=== PATIENT | female | born 1980 | race Two or more races ===

== ENCOUNTER 2016-03-30 22:55 | Observation (INO) | payer MEDICARE, OTHER ==
--- NOTE | 2016-03-30 23:09 | PDOC ---
History of Present Illness - General History Source: Patient <Arcadio Mo - Last Filed: 03/31/16 04:55> - General History Source: Patient Exam Limitations: No Limitations - History of Present Illness Initial Comments: 03/30/16 23:55 The patient is a 35 year old female with significant past medical history of GERD, seizures, cervical and lumbar radiculopathy, right shoulder impingement, reflex dystrophy, mediastinal mass excision, and depression who presents to the ED with witnessed seizure prior to arrival. Patient reports she was playing cards at about 10:30pm when she got up, fell, and hit the back of her head. Bleeding from the mouth was not noted. Patient denies bladder and bowel incontinence. Upon EMS arrival, they administered 5 mg of versed. Patient was able to get up and get onto the stretcher. Subsequently, patient seized again and EMS administered 2mg of versed, followed by another 2mg of versed. At time of evaluation, patient has complaints of pain to the right shoulder and right elbow. She reports chest pain and rib cage pain upon deep inspiration. She also has complaints of a headache and photophobia. Patient states she has been taking topiramate for 1 year with no improvement. Her last seizure was in December 2015. As per mother, at bedside, patient has numbness in her legs. The patient denies fever, chills, cough, and SOB. The patient denies abdominal pain, nausea, vomiting, and diarrhea. The patient denies dysuria, hematuria, urgency, and frequency. Allergies: aspirin, ibuprofen Social History: Current smoker (8 cigarettes per day) Past Surgical History: None reported PCP: Dr. Linton <Cinyd Swan - Last Filed: 03/31/16 05:07> - General Chief Complaint: Seizure Stated Complaint: SEIZURE Time Seen by Provider: 03/30/16 23:09 Past History - Past Medical History Anemia: No Asthma: No Cancer: No Cardiac Disorders: Yes (HEART MURMUR) CVA: No COPD: (LUNG NODULE) CHF: No Dementia: No Diabetes: No GI Disorders: No Disorders: No HTN: No Hypercholesterolemia: No Liver Disease: No Seizures: No Thyroid Disease: No - Surgical History Abdominal Surgery: No Appendectomy: No Cardiac Surgery: No Cholecystectomy: No Lung Surgery: Yes (MASS REMOVED) Neurologic Surgery: No Orthopedic Surgery: Yes (RIGHT SHOULDER SURGERY) - Family Disease History Family Disease History: Diabetes: Grandparents - Reproductive History (#): 6 Para: 3 Cervical CA: No Dysfunctional Uterine Bleeding: No Ectopic : No Endometrial CA: No Polycystic Ovaries: No Therapeutic (s) & number: No Tubal Ligation: No - Immunization History Td Vaccination: Yes Immunization Up to Date: Yes - Psycho/Social/Smoking Cessation Hx Anxiety: No Suicidal Ideation: No Smoking Status: Yes Smoking History: Current every day smoker Years of Tobacco Use: 0 Have you smoked in the past 12 months: Yes Number of Cigarettes Smoked Daily: 8 If you are a former smoker, when did you quit?: MAR 2013 Cigars Per Day: 0 'Breaking Loose' booklet given: 06/06/13 Hx Alcohol Use: No Drug/Substance Use Hx: No Substance Use Type: None Hx Substance Use Treatment: No <Arcadio Mo - Last Filed: 03/31/16 04:55> <Cindy Swan - Last Filed: 03/31/16 05:07> - Past Medical History Allergies/Adverse Reactions: Allergies Allergy/AdvReac Type Severity Reaction Status Date / Time aspirin Allergy Mild Hives Verified 03/30/16 23:23 ibuprofen Allergy Mild Hives Verified 03/30/16 23:23 Home Medications: Ambulatory Orders Acetaminophen/Caffeine/Butalb [Fioricet -] 1 tab PO Q6H PRN 03/30/16 Oxycodone HCl/Acetaminophen [Oxycodone-Acetaminophen 10-325] 1 each PO Q4HWA PRN 03/30/16 Phentermine HCl 30 mg PO DAILY 03/30/16 Topiramate [Topamax] 25 mg PO BID 03/30/16 Review of Systems - Review of Systems Able to Perform ROS?: Yes Comments:: 03/30/16 23:55 CONSTITUTIONAL: Absent: fever, chills, diaphoresis, generalized weakness, malaise, loss of appetite HEENT: Absent: rhinorrhea, nasal congestion, throat pain, throat swelling, difficulty swallowing, mouth swelling, ear pain, eye pain, visual Changes CARDIOVASCULAR: +chest pain Absent: syncope, palpitations, irregular heart rate, lightheadedness , peripheral edema RESPIRATORY: Absent: cough, shortness of breath, dyspnea with exertion, orthopnea, wheezing, stridor, hemoptysis GASTROINTESTINAL: Absent: abdominal pain, abdominal distension, nausea, vomiting, diarrhea, constipation, melena, hematochezia GENITOURINARY: Absent: dysuria, frequency, urgency, hesitancy, hematuria, flank pain, genital pain MUSCULOSKELETAL: +right shoulder pain, right elbow pain, rib cage pain Absent: joint swelling SKIN: Absent: rash, itching, pallor NEUROLOGIC: +seizure, headache, numbness in legs, photophobia Absent: focal weakness, dizziness, unsteady gait, mental status changes, bladder or bowel incontinence <Cindy Swan - Last Filed: 03/31/16 05:07> *Physical Exam - Vital Signs Last Vital Signs Temp Pulse Resp BP Pulse Ox 98.3 F 85 19 119/57 99 03/30/16 23:06 03/30/16 23:06 03/30/16 23:06 03/30/16 23:06 03/30/16 23:06 - Physical Exam Comments: 03/30/16 23:55 GENERAL: Well developed, well nourished. Awake and alert. No acute distress. HEENT: Normocephalic. No racoon or cavazos sign. PERRLA, EOMI, but not tracking well. Conjunctival injection bilaterally. Sclera are non-icteric. Moist mucous membranes. Erythema and swelling of left cheek. Oropharynx is clear. No bleeding from the mouth. No tongue laceration. No hemotympanum. NECK: Supple. Full ROM. No JVD. Carotid pulses 2+ and symmetric, without bruits. No thyromegaly. No lymphadenopathy. CARDIOVASCULAR: Regular rate and rhythm. No murmurs, rubs, or gallops. Distal pulses are 2+ and symmetric. PULMONARY: No evidence of respiratory distress. Lungs clear to auscultation bilaterally. No wheezing, rales or rhonchi. ABDOMINAL: Soft. Right abdominal tenderness. Non-distended. No rebound or guarding. No organomegaly. Normoactive bowel sounds. MUSCULOSKELETAL Normal range of motion at all joints. No bony deformities. Right shoulder tenderness, right elbow tenderness, right side of rib cage tenderness. No CVA tenderness. EXTREMITIES: No cyanosis. No clubbing. No edema. No calf tenderness. SKIN: Warm and dry. Normal capillary refill. No rashes. No jaundice. NEUROLOGICAL: Alert, awake, appropriate. Answering questions appropriately. Cranial nerves 2- 12 intact. Moving all extremities. Possible absent seizure during neuro exam. PSYCHIATRIC: Cooperative. Good eye contact. Appropriate mood and affect. <Cindy Swan - Last Filed: 03/31/16 05:07> ED Treatment Course - LABORATORY CBC & Chemistry Diagram: 03/30/16 23:52 03/30/16 23:52 <Arcadio Mo - Last Filed: 03/31/16 04:55> - LABORATORY CBC & Chemistry Diagram: 03/30/16 23:52 03/30/16 23:52 - RADIOLOGY Radiograph Interpretation: 03/31/16 01:45 EXAM: CT of the brain without contrast. Reveiwed by Imaging test preparation tutor: Comparison made to the provided prior evaluation dated 12/31/2015 There is no intra/extra-axial hemorrhage, vasogenic edema/focal mass effect, CT evidence of acute infarction, interval ventriculomegaly or gross change. Impression: no hemorrhage. EXAM: CT of the cervical spine without contrast. Reviewed by Imaging test preparation tutor: There is no fracture or facet subluxation; incidental developmental incomplete C1 dorsal arch. No prevertebral hematoma or gross acute epidural abnormality. Mild C4/5and C5/6 anterolisthesis; alignment is otherwise anatomic for the visualized volume, from skull base to T1/2. Presumed positional straightening of the normal lordosis. Impression: no fracture; as above. 03/31/16 05:07 EXAM: Chest radiograph Reviewed by Imaging test preparation tutor: IMPRESSION: No acute abnormality. EXAM: RIBS RIGHT SIDE Reviewed by Imaging test preparation tutor: IMPRESSION: no acute abnormality. <Cindy Swan - Last Filed: 03/31/16 05:07> Medical Decision Making - Medical Decision Making 03/31/16 04:42 Dr. Mo: The scribe's documentation has been prepared under my direction and personally reviewed by me in its entirery. I confirm that the note above accurately reflects all work, treatment, procedures, and medical decision making performed by me. <Arcadio Mo - Last Filed: 03/31/16 04:55> *DC/Admit/Observation/Transfer - Discharge Dispostion Admit: Yes <Arcadio Mo - Last Filed: 03/31/16 04:55> - Attestations Scribe Attestion: 03/30/16 23:56 Documentation prepared by Cindy Sawn, acting as medical technologist generalist for Arcadio Mo MD <Cindy Swan - Last Filed: 03/31/16 05:07> Diagnosis at time of Disposition: Seizure - Discharge Dispostion Condition at time of disposition: Guarded - Referrals Referrals: STAFF,NOT ON [Non Staff, Medical] -
[2016-03-31 00:04] LABS: BASOPHIL 0.4 % (0-2.0); EOSINOPHIL 0.6 % (0-4.5); MCH 27.5 pg (25.7-33.7); MCHC 31.9 g/dl (32.0-36.0); MEAN CELL VOLUME 86.2 fl (80-96); MEAN PLT VOLUME 8.6 fl (7.5-11.1); PLATELET COUNT 240 K/MM3 (134-434); RDW 14.4 % (11.6-15.6)
[2016-03-31 00:12] LABS: URINE APPEARANCE CLEAR; URINE BILIRUBIN NEGATIVE (NEGATIVE); URINE BLOOD TRACE-INTA (NEGATIVE); URINE COLOR LT. YELLOW; URINE GLUCOSE (UA) NEGATIVE (NEGATIVE); URINE KETONE 1+ (NEGATIVE); URINE LEUK ESTERASE NEGATIVE (NEGATIVE); URINE NITRITE NEGATIVE (NEGATIVE); URINE PROTEIN NEGATIVE (NEGATIVE); URINE UROBILINOGEN 0.2 E.U/dl E.U./dl (0.2-1.0)
[2016-03-31 00:30] LABS: ALBUMIN 3.7 g/dl (3.4-5.0); ALK PHOS 61 U/L (45-117); ANION GAP 10 (8-16); BILIRUBIN,TOTAL 0.6 mg/dL (0.2-1.0); CALCIUM 8.6 mg/dL (8.5-10.1); CO2 26 mmol/L (21-32); CREATININE 0.8 mg/dL (0.55-1.02); GLUCOSE,RANDOM 83 mg/dL (74-106); SGOT/AST 15 U/L (15-37); SGPT/ALT 13 U/L (12-78); TOT PROT 6.5 g/dl (6.4-8.2)
[2016-03-31] MEDS ORDERED: morphine CARPU-JECT 2 MG/1 ML DISP.SYRIN IVPUSH ONE (01:47)
[2016-03-31] MEDS ORDERED: ONDANSETRON 4 MG/2 ML VIAL IVPUSH STA (01:47)
[2016-03-31] MEDS ORDERED: morphine CARPU-JECT 4 MG/1 ML DISP.SYRIN ONE (02:04)
[2016-03-31] MEDS ORDERED: morphine CARPU-JECT 2 MG/1 ML DISP.SYRIN ONE (02:04)
[2016-03-31] MEDS ORDERED: ONDANSETRON 4 MG/2 ML VIAL ONE (02:05)
[2016-03-31] MEDS ORDERED: SODIUM CHLORIDE 1,000 ML IV STA (03:12)
[2016-03-31] MEDS ORDERED: HYDROmorphone HCL CARPU-JECT 1 MG/1 ML DISP.SYRIN IVPUSH ONE (03:16)
[2016-03-31] MEDS ORDERED: HYDROmorphone HCL CARPU-JECT 1 MG/1 ML DISP.SYRIN ONE (03:17)
[2016-03-31] MEDS ORDERED: METOCLOPRAMIDE HCL INJECTION 10 MG/2 ML VIAL IVPUSH ONE (04:34)
[2016-03-31] MEDS ORDERED: METOCLOPRAMIDE HCL INJECTION 10 MG/2 ML VIAL ONE (04:41)
[2016-03-31] MEDS ORDERED: ACETAMINOPHEN/CAFFEINE/BUTALBITAL 1 TAB PO PRN (05:30)
--- NOTE | 2016-03-31 05:55 | HP ---
CHIEF COMPLAINT: Seizure Activity PCP: Dr. Linton HISTORY OF PRESENT ILLNESS: This is a 35 year old woman with a past medical history of Seizure (on Topimax) , Heart Murmur, GERD, Cervical Lumbar Radiculopathy, R shoulder Impingement, Reflex dystrophy (RSD), Depression. Who was BIBA to the emergency department for seizure activity. Per ED records: Patient was playing cards at home with her kids 22:30 last night, she got up, fell and hit the back of her head, had a seizure without bladder or bowel incontinence. On EMS arrival patient had another seizure Versed 2mg was given x2. Patient admits to not taking her Topamax regularly because it makes her "feel funny". Patient also reports taking Phentermine for weight loss and was told by her PCP it can cause Seizures. Patient reports having a seizure last December, declined admission was to f/u with Neurologist, did not get to make an appointment. Patient reported chest pain, rib cage pain increased on deep inspiration, headache and photophobia when she arrived to the ED. Patient reports the chest pain resolved. Patient denies fever, chills, SOB, AP, N/V/D, constipation, dysuria. Patient denies sick contacts or recent travel. ER course was notable for: (1) CT Brain- no ICH, mass or lesion (2) Rib series- no acute abnormality (3) C- Spine Xray- no fracture or facet subluxation Recent Travel: None PAST MEDICAL HISTORY: See HPI PAST SURGICAL HISTORY: See HPI Social History: Smoking: Daily < 1/2 PPD Alcohol: None Drugs: None Family History: Mother: COPD, Obesity Allergies aspirin Allergy (Mild, Verified 03/30/16 23:23) Hives ibuprofen Allergy (Mild, Verified 03/30/16 23:23) Hives HOME MEDICATIONS: Medication Instructions Recorded Acetaminophen/Caffeine/Butalb 1 tab PO Q6H PRN 03/30/16 [Fioricet -] Oxycodone HCl/Acetaminophen 1 each PO Q4HWA PRN 03/30/16 [Oxycodone-Acetaminophen 10-325] Phentermine HCl 30 mg PO DAILY 03/30/16 Topiramate [Topamax] 25 mg PO BID 03/30/16 REVIEW OF SYSTEMS CONSTITUTIONAL: Absent: fever, chills, diaphoresis, generalized weakness, malaise, loss of appetite, weight change HEENT: Absent: rhinorrhea, nasal congestion, throat pain, throat swelling, difficulty swallowing, mouth swelling, ear pain, eye pain, visual changes CARDIOVASCULAR: chest pain, Absent: syncope, palpitations, irregular heart rate, lightheadedness, peripheral edema RESPIRATORY: Absent: cough, shortness of breath, dyspnea with exertion, orthopnea, wheezing, stridor, hemoptysis GASTROINTESTINAL: Absent: abdominal pain, abdominal distension, nausea, vomiting, diarrhea, constipation, melena, hematochezia GENITOURINARY: Absent: dysuria, frequency, urgency, hesitancy, hematuria, flank pain, genital pain MUSCULOSKELETAL: right rib pain Absent: myalgia, arthralgia, joint swelling, back pain, neck pain SKIN: Absent: rash, itching, pallor HEMATOLOGIC/IMMUNOLOGIC: Absent: easy bleeding, easy bruising, lymphadenopathy, frequent infections ENDOCRINE: Absent: unexplained weight gain, unexplained weight loss, heat intolerance, cold intolerance NEUROLOGIC: seizure, photophobia Absent: headache, focal weakness or paresthesias, dizziness, unsteady gait, mental status changes, bladder or bowel incontinence PSYCHIATRIC: Absent: anxiety, depression, suicidal or homicidal ideation, hallucinations. PHYSICAL EXAMINATION Vital Signs - 24 hr 03/30/16 23:06 Temperature 98.3 F Pulse Rate 85 Respiratory 19 Rate Blood Pressure 119/57 O2 Sat by Pulse 99 Oximetry (%) GENERAL: Awake, alert, and fully oriented, in no acute distress. HEAD: Normal with no signs of trauma. EYES: Pupils equal, round and reactive to light, extraocular movements intact, sclera anicteric, conjunctiva clear. No lid lag. EARS, NOSE, THROAT: Ears normal, nares patent, oropharynx clear without exudates. Moist mucous membranes. NECK: Normal range of motion, supple without lymphadenopathy, JVD, or masses. LUNGS: Breath sounds equal, clear to auscultation bilaterally. No wheezes, and no crackles. No accessory muscle use. HEART: Regular rate and rhythm, normal S1 and S2 without murmur, rub or gallop, chest pain reproducible on palpation ABDOMEN: Soft, nontender, not distended, normoactive bowel sounds, no guarding, no rebound, no masses. No hepatomegaly or splenomegaly. MUSCULOSKELETAL: Normal range of motion at all joints. No bony deformities or + tenderness right ribs, right knee no bruising. No CVA tenderness. UPPER EXTREMITIES: 2+ pulses, warm, well-perfused. No cyanosis. No clubbing. Cap refill <2 seconds. No peripheral edema. LOWER EXTREMITIES: 2+ pulses, warm, well-perfused. No calf tenderness. No peripheral edema. NEUROLOGICAL: Cranial nerves II-XII intact. Normal speech. Gait not observed. PSYCHIATRIC: Cooperative. Good eye contact. Appropriate mood and affect. SKIN: Warm, dry, normal turgor, no rashes. small eccyhmotic bruise to posterior R arm noted. Laboratory Results - last 24 hr 03/30/16 03/30/16 03/30/16 23:52 23:52 23:57 WBC 11.0 H D RBC 4.67 Hgb 12.9 Hct 40.3 MCV 86.2 MCHC 31.9 L RDW 14.4 Plt Count 240 MPV 8.6 Neutrophils % 68.0 Lymphocytes % 24.9 D Monocytes % 6.1 Eosinophils % 0.6 Basophils % 0.4 Sodium 143 Potassium 3.8 Chloride 107 Carbon Dioxide 26 Anion Gap 10 BUN 10 Creatinine 0.8 Creat Clearance w eGFR > 60 Random Glucose 83 D Calcium 8.6 Total Bilirubin 0.6 D AST 15 D ALT 13 Alkaline Phosphatase 61 Total Protein 6.5 Albumin 3.7 Serum , Qual Urine Color Lt. yellow Urine Appearance Clear Urine pH 6.0 Ur Specific [place] 1.025 Urine Protein Negative Urine Glucose (UA) Negative Urine Ketones 1+ H Urine Blood Trace-inta Urine Nitrite Negative Urine Bilirubin Negative Urine Urobilinogen 0.2 e.u/dl Ur Leukocyte Esterase Negative Urine HCG, Qual Negative 03/30/16 23:57 WBC RBC Hgb Hct MCV MCHC RDW Plt Count MPV Neutrophils % Lymphocytes % Monocytes % Eosinophils % Basophils % Sodium Potassium Chloride Carbon Dioxide Anion Gap BUN Creatinine Creat Clearance w eGFR Random Glucose Calcium Total Bilirubin AST ALT Alkaline Phosphatase Total Protein Albumin Serum , Qual Negative Urine Color Urine Appearance Urine pH Ur Specific [place] Urine Protein Urine Glucose (UA) Urine Ketones Urine Blood Urine Nitrite Urine Bilirubin Urine Urobilinogen Ur Leukocyte Esterase Urine HCG, Qual RADIOLOGY Radiograph Interpretation: 03/31/16 01:45 EXAM: CT of the brain without contrast. Reveiwed by Imaging honey blender: Comparison made to the provided prior evaluation dated 12/31/2015 There is no intra/extra-axial hemorrhage, vasogenic edema/focal mass effect, CT evidence of acute infarction, interval ventriculomegaly or gross change. Impression: no hemorrhage. EXAM: CT of the cervical spine without contrast. Reviewed by Imaging honey blender: There is no fracture or facet subluxation; incidental developmental incomplete C1 dorsal arch. No prevertebral hematoma or gross acute epidural abnormality. Mild C4/5and C5/6 anterolisthesis; alignment is otherwise anatomic for the visualized volume, from skull base to T1/2. Presumed positional straightening of the normal lordosis. Impression: no fracture; as above. 03/31/16 05:07 EXAM: Chest radiograph Reviewed by Imaging honey blender: IMPRESSION: No acute abnormality. EXAM: RIBS RIGHT SIDE Reviewed by Imaging honey blender: IMPRESSION: no acute abnormality. ASSESSMENT/PLAN: This is a 35 year old woman with a PMHx of: Seizure Disorder (on Topamax), GERD , Cervical/Lumbar Radiculopathy, R- shoulder Impingement, Reflex Sympathetic Dystrophy (RSD), Depression. Who presents to the ED Seizure Activity. Placed on Observation for Seizures, for further evaluation of her emergent condition. Plan: 1. Seizures - Likely secondary to non-adherence vs Weight Loss Supplement - Appreciate Neurology Consult - CT- no ICH, mass or lesion - Hold Phentermine - Continue Topamax - Seizure Precautions - HOB elevated - Monitor vitals - NPO - Continue IVF - Monitor CBC, BMP 2. Chest Pain - Likely muscular, reproducible on palpation - Order EKG-pending - Will do CE for baseline, then trend 3. Musc: Rib Pain/R shoulder Impingement - Likely secondary to fall - Rib Series- neg acute fx - Ice to area - Tylenol prn - Incentive Spirometer 4. GERD - Continue PPI 5. Cervical/Lumbar Radiculopathy/RSD - Continue home med 6. Leukocytosis - Likely secondary to stress vs inflammation - Monitor CBC 7. Depression - Patient denies suicidal or homicidal ideation - Not on meds presently - f/u with psych in outpatient 8. F/E/N - NS@100ml/hr - Replete lytes prn - NPO 9. DVT/PPI Prophylaxis - SCDs - PPI - Consider AC if LOS > 48 hrs Code Status: Patient is a Full Code Problem List - Problem (1) Seizure Code(s): R56.9 - UNSPECIFIED CONVULSIONS (2) Headache Code(s): R51 - HEADACHE Qualifiers: Headache type: unspecified Headache chronicity pattern: acute headache Intractability: not intractable Qualified Code(s): R51 - Headache (3) Chest pain Code(s): R07.9 - CHEST PAIN, UNSPECIFIED (4) Rib pain on right side Code(s): R07.81 - PLEURODYNIA (5) GERD (gastroesophageal reflux disease) Code(s): K21.9 - GASTRO-ESOPHAGEAL REFLUX DISEASE WITHOUT ESOPHAGITIS (6) Depression Code(s): F32.9 - MAJOR DEPRESSIVE DISORDER, SINGLE EPISODE, UNSPECIFIED (7) Cervical radiculopathy Code(s): M54.12 - RADICULOPATHY, CERVICAL REGION (8) Lumbar radiculopathy Code(s): M54.16 - RADICULOPATHY, LUMBAR REGION (9) DVT prophylaxis Code(s): CWS5327 - Visit type - Emergency Visit Emergency Visit: Yes Care time: The patient presented to the Emergency Department on the above date and was hospitalized for further evaluation of their emergent condition. - New Patient This patient is new to me today: Yes Date on this admission: 03/31/16 - Critical Care Critical Care patient: No
[2016-03-31] MEDS ORDERED: SODIUM CHLORIDE 1,000 ML IV SCH (06:45)
[2016-03-31 08:11] LABS: TROPONIN I < 0.02 ng/ml (0.00-0.05)
[2016-03-31 08:16] VITALS: TEMP 98.2
--- NOTE | 2016-03-31 09:18 | HOSP ---
Physical Examination Vital Signs: Vital Signs Temperature 98.2 F 03/31/16 08:15 Pulse Rate 72 03/31/16 08:15 Respiratory Rate 18 03/31/16 08:15 Blood Pressure 109/59 03/31/16 08:15 O2 Sat by Pulse Oximetry (%) 98 03/31/16 08:15 Hospitalist Encounter Assessment: Observation day #1 for this 35 year old female with a history of seizure disorder (non-adherent to Topamax because of side effects), GERD, chronic back pain, reflex dystrophy, and depression placed in observation this morning following a seizure episode at home with head trauma. Workup to date includes: -CTH: negative for acute intracranial process -CK (281) and WBC (11) both slightly elevated, likely secondary to seizure activity -Electrolytes unremarkable The patient has seen Dr. Rosas previously (although she missed her most recent appointment) and consultation with him is pending.
[2016-03-31] MEDS ORDERED: TOPIRAMATE 25 MG TABLET (FP) PO SCH (10:00)
[2016-03-31] MEDS ORDERED: DIVALPROEX SODIUM 250 MG TABLET E.C. (FP) PO SCH (10:30)
[2016-03-31] MEDS ORDERED: ACETAMINOPHEN/CAFFEINE/BUTALBITAL 1 TAB ONE (11:15)
[2016-03-31] MEDS ORDERED: TOPIRAMATE 25 MG TABLET (FP) ONE (11:16)
[2016-03-31] MEDS ORDERED: DIVALPROEX SODIUM 125 MG TABLET E.C. (FP) ONE (11:16)
--- NOTE | 2016-03-31 11:16 | CONSULT ---
Consult - text type - Consultation Consultation Note: Neurology History of Present Illness The patient is a 35 year old female with significant past medical history of GERD, seizures, cervical and lumbar radiculopathy, right shoulder impingement, reflex dystrophy, mediastinal mass excision, and depression who presents to the ED with witnessed seizure prior to arrival. Patient reports she was playing cards at about 10:30pm last night when she got up, fell, and hit the back of her head. Patient denies bladder and bowel incontinence. The patient is known to me fromt he office and often times is very emotional. She has not been seen in some time but has been on topamax. I discussed with her adding Depakote 250mg twice a day for both mood stabilization and seizure prevention. She is at her baseline in the ER and her complaints are more of pain to the right shoulder and right elbow. She reports chest pain and rib cage pain upon deep inspiration. She also has complaints of a headache and photophobia. Patient states she has been taking Her last seizure was in December 2015. Ct head completed and without acute changes, no bleed. CT C spine and Xrays as decribed below. The patient denies fever, chills, cough, and SOB. The patient denies abdominal pain, nausea, vomiting, and diarrhea. The patient denies dysuria, hematuria, urgency, and frequency. Allergies: aspirin, ibuprofen Social History: Current smoker (8 cigarettes per day) Past Surgical History: None reported PCP: Dr. Linton - General Chief Complaint: Seizure Stated Complaint: SEIZURE Time Seen by Provider: 03/30/16 23:09 Past History - Past Medical History Anemia: No Asthma: No Cancer: No Cardiac Disorders: Yes (HEART MURMUR) CVA: No COPD: (LUNG NODULE) CHF: No Dementia: No Diabetes: No GI Disorders: No Disorders: No HTN: No Hypercholesterolemia: No Liver Disease: No Seizures: No Thyroid Disease: No - Surgical History Abdominal Surgery: No Appendectomy: No Cardiac Surgery: No Cholecystectomy: No Lung Surgery: Yes (MASS REMOVED) Neurologic Surgery: No Orthopedic Surgery: Yes (RIGHT SHOULDER SURGERY) - Family Disease History Family Disease History: Diabetes: Grandparents - Reproductive History (#): 6 Para: 3 Cervical CA: No Dysfunctional Uterine Bleeding: No Ectopic : No Endometrial CA: No Polycystic Ovaries: No Therapeutic (s) & number: No Tubal Ligation: No - Immunization History Td Vaccination: Yes Immunization Up to Date: Yes - Psycho/Social/Smoking Cessation Hx Anxiety: No Suicidal Ideation: No Smoking Status: Yes Smoking History: Current every day smoker Years of Tobacco Use: 0 Have you smoked in the past 12 months: Yes Number of Cigarettes Smoked Daily: 8 If you are a former smoker, when did you quit?: MAR 2013 Cigars Per Day: 0 'Breaking Loose' booklet given: 06/06/13 Hx Alcohol Use: No Drug/Substance Use Hx: No Substance Use Type: None Hx Substance Use Treatment: No - Past Medical History Allergies/Adverse Reactions: Allergies Allergy/AdvReac Type Severity Reaction Status Date / Time aspirin Allergy Mild Hives Verified 03/30/16 23:23 ibuprofen Allergy Mild Hives Verified 03/30/16 23:23 Home Medications: Ambulatory Orders Acetaminophen/Caffeine/Butalb [Fioricet -] 1 tab PO Q6H PRN 03/30/16 Oxycodone HCl/Acetaminophen [Oxycodone-Acetaminophen 10-325] 1 each PO Q4HWA PRN 03/30/16 Phentermine HCl 30 mg PO DAILY 03/30/16 Topiramate [Topamax] 25 mg PO BID 03/30/16 Review of Systems CONSTITUTIONAL: Absent: fever, chills, diaphoresis, generalized weakness, malaise, loss of appetite HEENT: Absent: rhinorrhea, nasal congestion, throat pain, throat swelling, difficulty swallowing, mouth swelling, ear pain, eye pain, visual Changes CARDIOVASCULAR: +chest pain Absent: syncope, palpitations, irregular heart rate, lightheadedness , peripheral edema RESPIRATORY: Absent: cough, shortness of breath, dyspnea with exertion, orthopnea, wheezing, stridor, hemoptysis GASTROINTESTINAL: Absent: abdominal pain, abdominal distension, nausea, vomiting, diarrhea, constipation, melena, hematochezia GENITOURINARY: Absent: dysuria, frequency, urgency, hesitancy, hematuria, flank pain, genital pain MUSCULOSKELETAL: +right shoulder pain, right elbow pain, rib cage pain Absent: joint swelling SKIN: Absent: rash, itching, pallor NEUROLOGIC: +seizure, headache, numbness in legs, photophobia Absent: focal weakness, dizziness, unsteady gait, mental status changes, bladder or bowel incontinence *Physical Exam - Vital Signs Last Vital Signs Temp Pulse Resp BP Pulse Ox 98.3 F 85 19 119/57 99 03/30/16 23:06 03/30/16 23:06 03/30/16 23:06 03/30/16 23:06 03/30/16 23:06 GENERAL: Well developed, well nourished. Awake and alert. No acute distress. HEENT: Normocephalic. No racoon or cavazos sign. PERRLA, EOMI, but not tracking well. Conjunctival injection bilaterally. Sclera are non-icteric. Moist mucous membranes. Erythema and swelling of left cheek. Oropharynx is clear. No bleeding from the mouth. No tongue laceration. No hemotympanum. NECK: Supple. Full ROM. No JVD. Carotid pulses 2+ and symmetric, without bruits. No thyromegaly. No lymphadenopathy. CARDIOVASCULAR: Regular rate and rhythm. No murmurs, rubs, or gallops. Distal pulses are 2+ and symmetric. PULMONARY: No evidence of respiratory distress. Lungs clear to auscultation bilaterally. No wheezing, rales or rhonchi. ABDOMINAL: Soft. Right abdominal tenderness. Non-distended. No rebound or guarding. No organomegaly. Normoactive bowel sounds. MUSCULOSKELETAL Normal range of motion at all joints. No bony deformities. Right shoulder tenderness, right elbow tenderness, right side of rib cage tenderness. No CVA tenderness. EXTREMITIES: No cyanosis. No clubbing. No edema. No calf tenderness. SKIN: Warm and dry. Normal capillary refill. No rashes. No jaundice. NEUROLOGICAL: Alert, awake, appropriate. Answering questions appropriately. Cranial nerves 2- 12 intact. Moving all extremities. No abnormal movements PSYCHIATRIC: Cooperative. Good eye contact. Appropriate mood and affect. CBCD WBC 11.0 K/mm3 (4.0-10.0) H D 03/30/16 23:52 RBC 4.67 M/mm3 (3.60-5.2) 03/30/16 23:52 Hgb 12.9 GM/dL (10.7-15.3) 03/30/16 23:52 Hct 40.3 % (32.4-45.2) 03/30/16 23:52 MCV 86.2 fl (80-96) 03/30/16 23:52 MCHC 31.9 g/dl (32.0-36.0) L 03/30/16 23:52 RDW 14.4 % (11.6-15.6) 03/30/16 23:52 Plt Count 240 K/MM3 (134-434) 03/30/16 23:52 MPV 8.6 fl (7.5-11.1) 03/30/16 23:52 CMP Sodium 143 mmol/L (136-145) 03/30/16 23:52 Potassium 3.8 mmol/L (3.5-5.1) 03/30/16 23:52 Chloride 107 mmol/L (98-107) 03/30/16 23:52 Carbon Dioxide 26 mmol/L (21-32) 03/30/16 23:52 Anion Gap 10 (8-16) 03/30/16 23:52 BUN 10 mg/dL (7-18) 03/30/16 23:52 Creatinine 0.8 mg/dL (0.55-1.02) 03/30/16 23:52 Creat Clearance w eGFR > 60 (>60) 03/30/16 23:52 Calcium 8.6 mg/dL (8.5-10.1) 03/30/16 23:52 Total Bilirubin 0.6 mg/dL (0.2-1.0) D 03/30/16 23:52 AST 15 U/L (15-37) D 03/30/16 23:52 ALT 13 U/L (12-78) 03/30/16 23:52 Alkaline Phosphatase 61 U/L (45-117) 03/30/16 23:52 Total Protein 6.5 g/dl (6.4-8.2) 03/30/16 23:52 Albumin 3.7 g/dl (3.4-5.0) 03/30/16 23:52 - RADIOLOGY Radiograph Interpretation: EXAM: CT of the brain without contrast. Reveiwed by Imaging economic adviser: Comparison made to the provided prior evaluation dated 12/31/2015 There is no intra/extra-axial hemorrhage, vasogenic edema/focal mass effect, CT evidence of acute infarction, interval ventriculomegaly or gross change. Impression: no hemorrhage. EXAM: CT of the cervical spine without contrast. There is no fracture or facet subluxation; incidental developmental incomplete C1 dorsal arch. No prevertebral hematoma or gross acute epidural abnormality. Mild C4/5and C5/6 anterolisthesis; alignment is otherwise anatomic for the visualized volume, from skull base to T1/2. Presumed positional straightening of the normal lordosis. Impression: no fracture; as above. EXAM: Chest radiograph Reviewed by Imaging economic adviser: IMPRESSION: No acute abnormality. EXAM: RIBS RIGHT SIDE Reviewed by Imaging economic adviser: IMPRESSION: no acute abnormality. Plan: 35 year old female with significant past medical history of GERD, seizures, cervical and lumbar radiculopathy, right shoulder impingement, reflex dystrophy , mediastinal mass excision, and depression who presents to the ED with witnessed seizure prior to arrival. She is known to me fromt he office and often times is very emotional. She has not been seen in some time but has been on topamax. I discussed with her adding Depakote 250mg twice a day for both mood stabilization and seizure prevention. She is at her baseline in the ER and Ct head completed and without acute changes, no bleed. CT C spine and Xrays as decribed below. She does not want to stay in the hospital and I discussed with her outpatient follow up with EEG, if she tolerates medication well today doesn' t have any event during the afternoon. She agrees to follow up and take both medications. If any recurrence, she can return to ER but does not want to stay in hospital.
--- NOTE | 2016-03-31 11:21 | EKG ---
Test Reason : Blood Pressure : / mmHG Vent. Rate : 066 BPM Atrial Rate : 066 BPM P-R Int : 158 ms QRS Dur : 100 ms QT Int : 400 ms P-R-T Axes : 055 023 045 degrees QTc Int : 419 ms NORMAL SINUS RHYTHM NORMAL ECG WHEN COMPARED WITH ECG OF 31-DEC-2015 19:16, NO SIGNIFICANT CHANGE WAS FOUND Confirmed by CRIS JUNE MD ([id number]) on 03/31/2016 11:20:38 AM Referred By: Confirmed By:CRIS JUNE MD
[2016-03-31] MEDS ORDERED: traMADol HCL 50 MG TABLET PO ONE (13:19)
[2016-03-31] MEDS ORDERED: PATIENT'S OWN MEDICATION (NON-FORMULARY) (Oxycodone Hcl/Acetaminophen [Oxycodone-Acetamino PO PRN (13:24)
--- NOTE | 2016-03-31 13:27 | DS ---
Physical Exam: SUBJECTIVE: Patient seen and examined. Feels better, is insisting on going home. OBJECTIVE: Vital Signs Period Temp Pulse Resp BP Sys/Finn Pulse Ox Last 24 Hr 98.2 F 72 18 109/59 98 PHYSICAL EXAM GENERAL: The patient is awake, alert, and fully oriented, in no acute distress. HEAD: Normal with no signs of trauma. EYES: PERRL, extraocular movements intact, sclera anicteric, conjunctiva clear. ENT: Ears normal, nares patent, oropharynx clear without exudates, moist mucous membranes. NECK: Trachea midline, full range of motion, supple. LUNGS: Breath sounds equal, clear to auscultation bilaterally, no wheezes, no crackles, no accessory muscle use. HEART: Regular rate and rhythm, S1, S2 without murmur, rub or gallop. ABDOMEN: Soft, nontender, nondistended, normoactive bowel sounds, no guarding, no rebound, no hepatosplenomegaly, no masses. EXTREMITIES: 2+ pulses, warm, well-perfused, no edema. NEUROLOGICAL: Cranial nerves II through XII grossly intact. Normal speech, gait not observed. PSYCH: Normal mood, normal affect. SKIN: Warm, dry, normal turgor, no rashes or lesions noted. LABS CBCD WBC 11.0 K/mm3 (4.0-10.0) H D 03/30/16 23:52 RBC 4.67 M/mm3 (3.60-5.2) 03/30/16 23:52 Hgb 12.9 GM/dL (10.7-15.3) 03/30/16 23:52 Hct 40.3 % (32.4-45.2) 03/30/16 23:52 MCV 86.2 fl (80-96) 03/30/16 23:52 MCHC 31.9 g/dl (32.0-36.0) L 03/30/16 23:52 RDW 14.4 % (11.6-15.6) 03/30/16 23:52 Plt Count 240 K/MM3 (134-434) 03/30/16 23:52 MPV 8.6 fl (7.5-11.1) 03/30/16 23:52 CMP Sodium 143 mmol/L (136-145) 03/30/16 23:52 Potassium 3.8 mmol/L (3.5-5.1) 03/30/16 23:52 Chloride 107 mmol/L (98-107) 03/30/16 23:52 Carbon Dioxide 26 mmol/L (21-32) 03/30/16 23:52 Anion Gap 10 (8-16) 03/30/16 23:52 BUN 10 mg/dL (7-18) 03/30/16 23:52 Creatinine 0.8 mg/dL (0.55-1.02) 03/30/16 23:52 Creat Clearance w eGFR > 60 (>60) 03/30/16 23:52 Calcium 8.6 mg/dL (8.5-10.1) 03/30/16 23:52 Total Bilirubin 0.6 mg/dL (0.2-1.0) D 03/30/16 23:52 AST 15 U/L (15-37) D 03/30/16 23:52 ALT 13 U/L (12-78) 03/30/16 23:52 Alkaline Phosphatase 61 U/L (45-117) 03/30/16 23:52 Total Protein 6.5 g/dl (6.4-8.2) 03/30/16 23:52 Albumin 3.7 g/dl (3.4-5.0) 03/30/16 23:52 HOSPITAL COURSE: This is a 35 year old female with a history of GERD, seizures (non-adherent to Topamax), cervical and lumbar radiculopathy, right shoulder impingement, reflex dystrophy, mediastinal mass excision, and depression who presented to the ED early this morning following a witnessed seizure with head trauma. Hospital course was notable for: -HCT: No acute intracranial process. -Electrolytes unremarkable. -Patient complaining of right shoulder and rib pain following fall; relieved with Morphine, then Ultram. -Evaluated by neurology: recommend adding Depakote. Patient given first dose and observed with no adverse effects. Date of Admission:03/31/16 Date of Discharge: 03/31/16 Minutes to complete discharge: 30 Discharge Summary Reason For Visit: SEIZURE Current Active Problems Rib pain on right side (Acute) Cervical radiculopathy (Chronic) Depression (Chronic) GERD (gastroesophageal reflux disease) (Chronic) Lumbar radiculopathy (Chronic) Condition: Improved - Instructions Diet, Activity, Other Instructions: -Stop taking diet pills as they may make you more likely to have seizures -Continue your Topamax and add Depakote as discussed -Follow up with your neurologist and primary doctor in one week -Return here for repeated seizure episodes or any other concerning symptoms Referrals: Fermin Duran MD [Staff Physician] - 1 Week Keith Linton MD [Primary Care Provider] - 1 Week Disposition: HOME - Home Medications Comprehensive Discharge Medication List: Ambulatory Orders Acetaminophen/Caffeine/Butalb [Fioricet -] 1 tab PO Q6H PRN 03/30/16 Oxycodone HCl/Acetaminophen [Oxycodone-Acetaminophen 10-325] 1 each PO Q4HWA PRN 03/30/16 Phentermine HCl 30 mg PO DAILY 03/30/16 Topiramate [Topamax] 25 mg PO BID 03/30/16 Divalproex Sodium [Depakote] 250 mg PO BID #60 tablet. 03/31/16 This patient is new to me today: No Emergency Visit: Yes ED Registration Date: 03/31/16 Care time: The patient presented to the Emergency Department on the above date and was hospitalized for further evaluation of their emergent condition. Critical Care patient: No - Discharge Referral Referred to [facility] No
[2016-03-31] MEDS ORDERED: oxyCODONE HCL 5 MG TABLET PO PRN (13:45)
[2016-03-31] MEDS ORDERED: ACETAMINOPHEN 325 MG TABLET (FP) PO PRN (13:46)
[2016-03-31] MEDS ORDERED: traMADol HCL 50 MG TABLET ONE (13:56)
[2016-03-31 14:27] VITALS: BP 125/61; PULSE 80; BMI 40.3
== END 2016-03-31 14:48 | disposition home or self-care (01) ==
LOC: JER 22:55 → SUPCPDRO 22:55 → JERBED 03-31 05:10
PROVIDERS: ADMIT Internal Medicine; ATTEND Registered Nurse Emergency
DX: G40.909 Epilepsy, unspecified, not intractable, without status epilepticus (principal); K21.9 Gastro-esophageal reflux disease without esophagitis; R01.1 Cardiac murmur, unspecified; M54.12 Radiculopathy, cervical region; G90.50 Complex regional pain syndrome I, unspecified; F32.9 Major depressive disorder, single episode, unspecified; H53.149 Visual discomfort, unspecified; D72.829 Elevated white blood cell count, unspecified; F17.210 Nicotine dependence, cigarettes, uncomplicated; M54.16 Radiculopathy, lumbar region; S09.90XA Unspecified injury of head, initial encounter; R07.81 Pleurodynia; M25.511 Pain in right shoulder; W01.0XXA Fall on same level from slipping, tripping and stumbling without subsequent striking against object, initial encounter; Y92.009 Unspecified place in unspecified non-institutional (private) residence as the place of occurrence of the external cause; Z91.14 Patient's other noncompliance with medication regimen
CPT/HCPCS: 36415; 70450-TC; 71010-TC; 71101-TC-RT; 72125-TC; 73030-TC-RT; 73070-TC-RT; 80053; 81003; 82550; 82553; 84484; 84703; 85025; 93005; 93010; 99283-25; G0378

== ENCOUNTER 2016-06-08 18:55 | Emergency (ER) | payer MEDICARE, OTHER ==
[2016-06-08 19:33] VITALS: BP 128/78; PULSE 78; TEMP 98.1; BMI 39.1
--- NOTE | 2016-06-08 19:34 | PDOC ---
Rapid Medical Evaluation Chief Complaint: Pain, Acute Time Seen by Provider: 06/08/16 19:27 Medical Evaluation: Allergies Allergy/AdvReac Type Severity Reaction Status Date / Time aspirin Allergy Mild Hives Verified 03/30/16 23:23 ibuprofen Allergy Mild Hives Verified 03/30/16 23:23 06/08/16 19:28 I have performed a brief in-person evaluation of this patient. The patient presents with a chief complaint of: left shpulder pain/ fell from bus landing onto outstretched. [id number] taking shpwer felt pop/ click and unable to move / + hand numbbness Pertinent physical exam findings: shoulder /swelling/ some anterior I have ordered the following: UCG/ left shoulder xray The patient will proceed to the ED for further evaluation.
[2016-06-08 20:33] LABS: HIV 1 & 2 AB NEGATIVE; HIV 1 AGp24 NEGATIVE
--- NOTE | 2016-06-08 20:54 | PDOC ---
History of Present Illness - General Chief Complaint: Injury Stated Complaint: INJURY Time Seen by Provider: 06/08/16 19:27 History Source: Patient Exam Limitations: No Limitations - History of Present Illness Initial Comments: 06/08/16 20:54 Occurred: reports: this morning, this afternoon Severity: reports: moderate Pain Location: reports: upper extremity (left shoulder ) Past History - Travel Traveled outside of the country in the last 30 days: No Close contact w/someone who was outside of country & ill: No - Past Medical History Allergies/Adverse Reactions: Allergies Allergy/AdvReac Type Severity Reaction Status Date / Time aspirin Allergy Mild Hives Verified 06/08/16 19:33 ibuprofen Allergy Mild Hives Verified 06/08/16 19:33 Home Medications: Ambulatory Orders Acetaminophen/Caffeine/Butalb [Fioricet -] 1 tab PO Q6H PRN 03/30/16 Oxycodone HCl/Acetaminophen [Oxycodone-Acetaminophen 10-325] 1 each PO Q4HWA PRN 03/30/16 Phentermine HCl 30 mg PO DAILY 03/30/16 Topiramate [Topamax] 25 mg PO BID 03/30/16 Divalproex Sodium [Depakote] 250 mg PO BID #60 tablet. 03/31/16 Oxycodone HCl/Acetaminophen [Percocet 5-325 mg Tablet -] 1 - 2 tab PO Q4H PRN # 7 tablet MDD 4 06/08/16 Anemia: No Asthma: No Cancer: No Cardiac Disorders: Yes (HEART MURMUR) CVA: No COPD: Yes (LUNG NODULE) CHF: No Dementia: No Diabetes: No GI Disorders: No Disorders: No HTN: No Hypercholesterolemia: No Liver Disease: No Seizures: Yes Thyroid Disease: No Other medical history: herniated disc - Surgical History Abdominal Surgery: No Appendectomy: No Cardiac Surgery: No Cholecystectomy: No Lung Surgery: Yes (MASS REMOVED) Neurologic Surgery: No Orthopedic Surgery: Yes (RIGHT SHOULDER SURGERY) - Family Disease History Family Disease History: Diabetes: Grandparents - Reproductive History (#): 6 Para: 3 Cervical CA: No Dysfunctional Uterine Bleeding: No Ectopic : No Endometrial CA: No Polycystic Ovaries: No Therapeutic (s) & number: No Tubal Ligation: No - Immunization History Td Vaccination: Yes Immunization Up to Date: Yes - Psycho/Social/Smoking Cessation Hx Anxiety: No Suicidal Ideation: No Smoking Status: Yes Smoking History: Current every day smoker Years of Tobacco Use: 0 Have you smoked in the past 12 months: Yes Number of Cigarettes Smoked Daily: 8 If you are a former smoker, when did you quit?: MAR 2013 Cigars Per Day: 0 Information on smoking cessation initiated: No 'Breaking Loose' booklet given: 03/31/16 Hx Alcohol Use: No Drug/Substance Use Hx: No Substance Use Type: None Hx Substance Use Treatment: No Trauma Specific PMHX - Complaint Specific PMHX Arthritis: No Back Injury: No Neck Injury: No Review of Systems - Review of Systems Able to Perform ROS?: Yes Is the patient limited Kyrgyz proficient: Yes Constitutional: Yes: Symptoms Reported, See HPI. No: Malaise HEENTM: No: Symptoms Reported Respiratory: No: Symptoms reported Musculoskeletal: Yes: Symptoms Reported, See HPI, Joint Pain, Joint Swelling ( left shouder ) Neurological: Yes: Symptoms reported, See HPI All Other Systems: Reviewed and Negative *Physical Exam - Vital Signs Last Vital Signs Temp Pulse Resp BP Pulse Ox 98.1 F 78 18 128/78 98 06/08/16 19:29 06/08/16 19:29 06/08/16 19:29 06/08/16 19:29 06/08/16 19:29 - Physical Exam General Appearance: Yes: Nourished, Appropriately Dressed, Apparent Distress HEENT: positive: STEPHANIE, Normal ENT Inspection, TMs Normal, Pharynx Normal Neck: positive: Supple. negative: Lymphadenopathy (R), Lymphadenopathy (L) Respiratory/Chest: positive: Lungs Clear, Normal Breath Sounds Musculoskeletal: positive: Normal Inspection, Decreased Range of Motion Extremity: positive: Normal Capillary Refill, Normal Inspection. negative: Normal Range of Motion (limited range of motion active, however patient able to manipulate purse with left arm without being observed. ) Integumentary: positive: Normal Color, Dry, Warm, Pale Neurologic: positive: architectural coating finisher II-XII NML intact, Fully Oriented, Alert, Normal Mood/ Affect, Normal Response, Motor Strength / ED Treatment Course - ADDITIONAL ORDERS Additional order review: Laboratory Results 06/08/16 20:00 Urine HCG, Qual Negative - RADIOLOGY Radiology Studies Ordered: Category Date Time Status SHOULDER-LEFT [RAD] Stat Radiology 06/08/16 19:32 Ordered Progress Note - Progress Note Progress Note: Left shoulder sprain Medical Decision Making - Medical Decision Making 06/08/16 21:06 Mild before meals's sprain, grade 2. No fracture dislocation. *DC/Admit/Observation/Transfer Diagnosis at time of Disposition: Left shoulder strain Qualifiers: Encounter type: initial encounter Qualified Code(s): S46.912A - Strain of unspecified muscle, fascia and tendon at shoulder and upper arm level, left arm , initial encounter - Discharge Dispostion Disposition: HOME Condition at time of disposition: Stable Admit: No - Referrals Referrals: Keith Linton MD [Primary Care Provider] - Waylon Lim MD [Staff Physician] - - Patient Instructions Printed Discharge Instructions: DI for Shoulder Sprain Additional Instructions: Rest, ice to area on and off for 15 minutes 4-6 times a day Avoid heavy lifting or exercise until pain and swelling is resolved or until further directed Keep area highly elevated to reduce swelling Use splints/Anam wrap as directed Followup with orthopedist in one to 2 days if not improving, if significantly improved may wait one week for followup with orthopedist May use ibuprofen 2-200 mg tablets every 6 hours as needed for pain Use Percocet for severe pain, 1 or 2 tablets every 6 hours as needed - Post Discharge Activity Work/School Note: Back to Work
[2016-06-08] MEDS ORDERED: OXYCODONE/APAP 5/325MG COMBO TABLET PO ONE (21:05)
[2016-06-08] MEDS ORDERED: OXYCODONE/APAP 5/325MG COMBO TABLET ONE (21:07)
== END 2016-06-08 21:16 | disposition home or self-care (01) ==
LOC: SUPCPDRO 18:55 → JERFT 18:55
DX: S46.912A Strain of unspecified muscle, fascia and tendon at shoulder and upper arm level, left arm, initial encounter (principal); X58.XXXA Exposure to other specified factors, initial encounter; Y93.9 Activity, unspecified; Y92.9 Unspecified place or not applicable; F17.210 Nicotine dependence, cigarettes, uncomplicated; R01.1 Cardiac murmur, unspecified
CPT/HCPCS: 36415; 73030-TC-LT; 84703; 87389; 99281-25

== ENCOUNTER → 2016-07-28 | Emergency (ER) | payer MEDICARE, OTHER ==
[~2016-07-28] MED LIST: AZITHROMYCIN IVPB 250 ML IVPB ONE; AZITHROMYCIN IVPB 500 MG in DEXTROSE 5%-WATER - 250 ML IVPB ONE; CEFTRIAXONE 1 GM in DEXTROSE 5%-WATER - 50 ML IVPB ONE; CEFTRIAXONE 50 ML ONE; LORAZEPAM CARPU-JECT 2 MG/ML DISP.SYRIN IVPUSH ONE; LORAZEPAM CARPU-JECT 2 MG/ML DISP.SYRIN ONE; ONDANSETRON 4 MG/2 ML VIAL IVPB ONE; ONDANSETRON 4 MG/2 ML VIAL ONE; OXYCODONE/APAP 5/325MG COMBO TABLET ONE; OXYCODONE/APAP 5/325MG COMBO TABLET PO ONE; SODIUM CHLORIDE 2,000 ML IV STA; morphine CARPU-JECT 4 MG/1 ML DISP.SYRIN IVPUSH ONE; morphine CARPU-JECT 4 MG/1 ML DISP.SYRIN ONE
[2016-07-28 16:37] VITALS: BMI 39.1
--- NOTE | 2016-07-28 17:05 | PDOC ---
History of Present Illness - History of Present Illness Initial Comments: 07/28/16 18:02 Patient is a 36 year old female with significant medical hx of GERD, seizures, cervical and lumbar radiculopathy, right shoulder impingement, reflex dystrophy , and depression who is presenting to the ED via EMS s/p seizure. Today the patient saw her PMD for 24 hours of nausea and vomiting. While at the office, the patient had a seizure, and EMS was called. The patient complains of nausea and diffuse abdominal pain with her vomiting. The patient hasn't taken her seizure medication in two weeks. Neurologist: Fermin Duran MD PMD: Keith Linton MD Allergies: aspirin, ibuprofen Social Hx: Current smoker (8 cigarettes per day) Surgical Hx: mediastinal mass excision <Cheryle Sands - Last Filed: 07/28/16 21:44> <Gage Uriarte - Last Filed: 07/28/16 22:34> - General Chief Complaint: Seizure Stated Complaint: SEIZURE Time Seen by Provider: 07/28/16 17:04 Past History <Cheryle Sands - Last Filed: 07/28/16 21:44> - Past Medical History Anemia: No Asthma: No Cancer: No Cardiac Disorders: Yes (HEART MURMUR) CVA: No COPD: Yes (LUNG NODULE) CHF: No Dementia: No Diabetes: No GI Disorders: No Disorders: No HTN: No Hypercholesterolemia: No Liver Disease: No Seizures: Yes Thyroid Disease: No - Surgical History Abdominal Surgery: No Appendectomy: No Cardiac Surgery: No Cholecystectomy: No Lung Surgery: Yes (MASS REMOVED) Neurologic Surgery: No Orthopedic Surgery: Yes (RIGHT SHOULDER SURGERY) - Family Disease History Family Disease History: Diabetes: Grandparents - Reproductive History (#): 6 Para: 3 Cervical CA: No Dysfunctional Uterine Bleeding: No Ectopic : No Endometrial CA: No Polycystic Ovaries: No Therapeutic (s) & number: No Tubal Ligation: No - Immunization History Td Vaccination: Yes Immunization Up to Date: Yes - Psycho/Social/Smoking Cessation Hx Anxiety: No Suicidal Ideation: No Smoking Status: Yes Smoking History: Current every day smoker Years of Tobacco Use: 0 Have you smoked in the past 12 months: Yes Number of Cigarettes Smoked Daily: 8 If you are a former smoker, when did you quit?: MAR 2013 Cigars Per Day: 0 Information on smoking cessation initiated: No 'Breaking Loose' booklet given: 03/31/16 Hx Alcohol Use: No Drug/Substance Use Hx: No Substance Use Type: None Hx Substance Use Treatment: No <Gage Uriarte - Last Filed: 07/28/16 22:34> - Past Medical History Allergies/Adverse Reactions: Allergies Allergy/AdvReac Type Severity Reaction Status Date / Time aspirin Allergy Mild Hives Verified 07/28/16 16:34 ibuprofen Allergy Mild Hives Verified 07/28/16 16:34 Home Medications: Ambulatory Orders Acetaminophen/Caffeine/Butalb [Fioricet -] 1 tab PO Q6H PRN 03/30/16 Oxycodone HCl/Acetaminophen [Oxycodone-Acetaminophen 10-325] 1 each PO Q4HWA PRN 03/30/16 Phentermine HCl 30 mg PO DAILY 03/30/16 Topiramate [Topamax] 25 mg PO BID 03/30/16 Divalproex Sodium [Depakote] 250 mg PO BID #60 tablet. 03/31/16 Levofloxacin [Levaquin] 750 mg PO DAILY #10 tab 07/28/16 Ondansetron [Zofran *Odt*] 8 mg SL TID #30 od.tablet MDD 3 07/28/16 Oxycodone HCl/Acetaminophen [Percocet 5-325 mg Tablet] 1 - 2 tab PO Q4H #20 tablet MDD 6 07/28/16 Review of Systems - Review of Systems Comments:: 07/28/16 18:07 CONSTITUTIONAL: Absent: fever, chills, diaphoresis, generalized weakness, malaise, loss of appetite HEENT: Absent: rhinorrhea, nasal congestion, throat pain, throat swelling, difficulty swallowing, mouth swelling, ear pain, eye pain, visual changes CARDIOVASCULAR: Absent: chest pain, syncope, palpitations, irregular heart rate, lightheadedness , peripheral edema RESPIRATORY: Absent: cough, shortness of breath, dyspnea with exertion, orthopnea, wheezing, stridor, hemoptysis GASTROINTESTINAL: Present: abdominal pain, nausea, vomiting Absent: abdominal distension, diarrhea, constipation, melena, hematochezia GENITOURINARY: Absent: dysuria, frequency, urgency, hesitancy, hematuria, flank pain, genital pain MUSCULOSKELETAL: Absent: myalgia, arthralgia, joint swelling SKIN: Absent: rash, itching, pallor HEMATOLOGIC/IMMUNOLOGIC: Absent: easy bleeding, easy bruising, lymphadenopathy, frequent infections ENDOCRINE: Absent: unexplained weight gain, unexplained weight loss, heat intolerance, cold intolerance NEUROLOGIC: Present: seizure Absent: headache, focal weakness or paresthesia, dizziness, unsteady gait, mental status changes, bladder or bowel incontinence. PSYCHIATRIC: Absent: anxiety, depression, suicidal or homicidal ideation, hallucinations <Cheryle Sands - Last Filed: 07/28/16 21:44> *Physical Exam - Vital Signs Last Vital Signs Temp Pulse Resp BP Pulse Ox 98.5 F 83 2 L 118/72 99 07/28/16 16:34 07/28/16 16:34 07/28/16 16:34 07/28/16 16:34 07/28/16 16:34 - Physical Exam Comments: 07/28/16 18:08 GENERAL: Well developed, well nourished. Awake and alert. No acute distress. HEENT: Normocephalic, atraumatic. PERRLA, EOMI. No conjunctival pallor. Sclera are non- icteric. Moist mucous membranes. Oropharynx is clear. NECK: Supple. Full ROM. No JVD. Carotid pulses 2+ and symmetric, without bruits. No thyromegaly. No lymphadenopathy. CARDIOVASCULAR: Regular rate and rhythm. No murmurs, rubs, or gallops. Distal pulses are 2+ and symmetric. PULMONARY: No evidence of respiratory distress. Lungs clear to auscultation bilaterally. No wheezing, rales or rhonchi. ABDOMINAL: Soft. Non-tender. Non-distended. No rebound or guarding. No organomegaly. Normoactive bowel sounds. MUSCULOSKELETAL: Normal range of motion at all joints. No bony deformities or tenderness. No CVA tenderness. EXTREMITIES: No cyanosis. No clubbing. No edema. No calf tenderness. SKIN: Warm and dry. Normal capillary refill. No rashes. No jaundice. NEUROLOGICAL: Alert, awake, appropriate. Cranial nerves 2-12 intact. Normal speech. Gait is normal without ataxia. PSYCHIATRIC: Cooperative. Good eye contact. Appropriate mood and affect. <Cheryle Sands - Last Filed: 07/28/16 21:44> - Vital Signs Last Vital Signs Temp Pulse Resp BP Pulse Ox 98.5 F 83 2 L 118/72 99 07/28/16 16:34 07/28/16 16:34 07/28/16 16:34 07/28/16 16:34 07/28/16 16:34 <Gage Uriarte - Last Filed: 07/28/16 22:34> ED Treatment Course - LABORATORY CBC & Chemistry Diagram: 07/28/16 17:29 07/28/16 17:29 - RADIOLOGY Radiograph Interpretation: 07/28/16 21:45 Chest X-Ray Impression: Mild atelectatic changes in the right lung base with possible infiltrates. Follow-up is needed. Reported by: Mitzy Kay MD - Medications Given in the ED: ED Medications Discontinued Medications Generic Name Dose Route Start Last Admin Trade Name Freq PRN Reason Stop Dose Admin Lorazepam 2 mg 07/28/16 17:24 07/28/16 16:25 Ativan Injection - IVPUSH 07/28/16 17:25 2 mg ONCE ONE Administration Ondansetron HCl 8 mg 07/28/16 17:24 07/28/16 17:30 Zofran Injection IVPB 07/28/16 17:25 8 mg ONCE ONE Administration <Cheryle Sands - Last Filed: 07/28/16 21:44> - LABORATORY CBC & Chemistry Diagram: 07/28/16 17:29 07/28/16 17:29 <Gage Uriarte - Last Filed: 07/28/16 22:34> Medical Decision Making - Medical Decision Making 07/28/16 18:09 Patient non-complaint and unable to get a refill on seizure meds due to factors out of her control. Pt had a seizure in the doctor's office today while waiting to be seen. Patient brought in by EMS. I imagine this is her underlying seizure disorder precipitated by viral gastroenteritis. Will tx symptomatically and reassess once all objective data is back. <Cheryle Sands - Last Filed: 07/28/16 21:44> *DC/Admit/Observation/Transfer - Attestations Scribe Attestion: 07/28/16 18:08 Documentation prepared by Cheryle Sands, acting as medical coordinator pesticide use for Gage Uriarte MD. <Cheryle Sands - Last Filed: 07/28/16 21:44> - Discharge Dispostion Admit: No - Attestations Physician Attestion: 07/28/16 17:04 I, Dr. Gage Uriarte, attest that this document has been prepared under my direction and personally reviewed by me in its entirety. I further attest, that it accurately reflects all work, treatment, procedures and medical decision -making performed by me. <Gage Uriarte - Last Filed: 07/28/16 22:34> Diagnosis at time of Disposition: Seizure disorder Pneumonia Qualifiers: Pneumonia type: due to unspecified organism Laterality: right Lung location: lower lobe of lung Qualified Code(s): J18.1 - Lobar pneumonia, unspecified organism Migraine headache Qualifiers: Migraine type: other Status migrainosus presence: without status migrainosus Intractability: not intractable Qualified Code(s): G43.809 - Other migraine, not intractable, without status migrainosus - Discharge Dispostion Disposition: HOME - Prescriptions Prescriptions: Levofloxacin [Levaquin] 750 mg PO DAILY #10 tab Oxycodone HCl/Acetaminophen [Percocet 5-325 mg Tablet] 1 - 2 tab PO Q4H #20 tablet MDD 6 Ondansetron [Zofran *Odt*] 8 mg SL TID #30 od.tablet MDD 3 - Referrals Referrals: Keith Linton MD [Primary Care Provider] - - Patient Instructions Printed Discharge Instructions: DI for Pneumonia -- Adult, DI for Viral Gastroenteritis -- Adult Additional Instructions: See your regular doctor to get a refill of your headache and seizure meds. Drink plenty of liquids. Percocet is for bad, very bad pain. Take it only if you need it. Zofran is for nausea or vomiting. Levaquin is the antibiotic for your Pneumonia. Return to us if worse or new symptoms occur. Best- Dr. Gage Uriarte
[2016-07-28 18:33] LABS: BASOPHIL 0.3 % (0-2.0); EOSINOPHIL 0.8 % (0-4.5); MCH 27.9 pg (25.7-33.7); MCHC 32.1 g/dl (32.0-36.0); MEAN CELL VOLUME 86.9 fl (80-96); MEAN PLT VOLUME 8.3 fl (7.5-11.1); NEUTROPHILS 70.5 % (42.8-82.8); PLATELET COUNT 202 K/MM3 (134-434); WHITE BLOOD COUNT 5.2 K/mm3 (4.0-10.0)
[2016-07-28 18:45] LABS: INR 1.16 (0.82-1.09); PROTHROMBIN TIME (PATIENT) 12.8 SEC (9.98-11.88)
[2016-07-28 18:57] LABS: ALBUMIN 3.2 g/dl (3.4-5.0); ANION GAP 9 (8-16); BILIRUBIN,TOTAL 0.8 mg/dL (0.2-1.0); CALCIUM 7.8 mg/dL (8.5-10.1); CO2 23 mmol/L (21-32); COCKROFT - GAULT 179.6475; CREATININE 0.7 mg/dL (0.55-1.02); GLUCOSE,RANDOM 75 mg/dL (74-106); SGPT/ALT 12 U/L (12-78)
[2016-07-28 18:58] LABS: ALK PHOS 67 U/L (45-117)
[2016-07-28 19:01] LABS: SGOT/AST 12 U/L (15-37)
[2016-07-28 19:46] VITALS: BP 119/75; PULSE 86; TEMP 98.7
[2016-07-28 20:22] LABS: URINE APPEARANCE CLEAR; URINE BILIRUBIN NEGATIVE (NEGATIVE); URINE COLOR LTYELLOW; URINE GLUCOSE (UA) NEGATIVE (NEGATIVE); URINE KETONE TRACE (NEGATIVE); URINE LEUK ESTERASE NEGATIVE (NEGATIVE); URINE NITRITE NEGATIVE (NEGATIVE); URINE PROTEIN NEGATIVE (NEGATIVE); URINE UROBILINOGEN NEGATIVE E.U./dl (0.2-1.0)
[2016-07-28 21:02] LABS: URINE BLOOD 3+ (NEGATIVE)
[2016-07-28 22:25] LABS: URINE MUCUS RARE; URINE RBC 13 /hpf (0-3); URINE WBC 1 /hpf (3-5)
== END | disposition home or self-care (01) ==
LOC: JER 16:22
PROC: 3E0337Z Introduction of Electrolytic and Water Balance Substance into Peripheral Vein, Percutaneous Approach (ICD-10-PCS; principal; 2016-07-28)
PROC: 3E03329 Introduction of Other Anti-infective into Peripheral Vein, Percutaneous Approach (ICD-10-PCS; 2016-07-28)
PROC: 3E03329 Introduction of Other Anti-infective into Peripheral Vein, Percutaneous Approach (ICD-10-PCS; 2016-07-28)
PROC: 3E033NZ Introduction of Analgesics, Hypnotics, Sedatives into Peripheral Vein, Percutaneous Approach (ICD-10-PCS; 2016-07-28)
PROC: 3E033GC Introduction of Other Therapeutic Substance into Peripheral Vein, Percutaneous Approach (ICD-10-PCS; 2016-07-28)
DX: G40.909 Epilepsy, unspecified, not intractable, without status epilepticus (principal); K52.9 Noninfective gastroenteritis and colitis, unspecified; J18.9 Pneumonia, unspecified organism; G43.809 Other migraine, not intractable, without status migrainosus
CPT/HCPCS: 36415; 70450-TC; 71020-TC; 80053; 81003; 81015; 83690; 84703; 85025; 85610; 99283-25

== ENCOUNTER 2017-04-24 08:14 | Emergency (ER) | payer MEDICARE, OTHER ==
[2017-04-24 08:30] VITALS: BP 112/73; PULSE 72; TEMP 98.3; BMI 38.6
--- NOTE | 2017-04-24 09:42 | PDOC ---
History of Present Illness - General Chief Complaint: Cold Symptoms Stated Complaint: CHEST PAIN, BODYACHES Time Seen by Provider: 04/24/17 09:15 History Source: Patient Exam Limitations: No Limitations - History of Present Illness Initial Comments: 04/24/17 09:34 36 yr female with history of chronic pain to the back and neck on oxycodone, history of seizures on topomax presents to ER with sudden onset body aches and sweats. no abd pain denies sore throat denies urinary complaints. Past History - Past Medical History Allergies/Adverse Reactions: Allergies Allergy/AdvReac Type Severity Reaction Status Date / Time aspirin Allergy Mild Hives Verified 04/24/17 08:25 ibuprofen Allergy Mild Hives Verified 04/24/17 08:25 Home Medications: Ambulatory Orders Acetaminophen/Caffeine/Butalb [Fioricet -] 1 tab PO Q6H PRN 03/30/16 Oxycodone HCl/Acetaminophen [Oxycodone-Acetaminophen 10-325] 1 each PO Q4HWA PRN 03/30/16 Phentermine HCl 30 mg PO DAILY 03/30/16 Topiramate [Topamax] 25 mg PO BID 03/30/16 Divalproex Sodium [Depakote] 250 mg PO BID #60 tablet. 03/31/16 Levofloxacin [Levaquin] 750 mg PO DAILY #10 tab 07/28/16 Ondansetron [Zofran *Odt*] 8 mg SL TID #30 od.tablet MDD 3 07/28/16 Oxycodone HCl/Acetaminophen [Percocet 5-325 mg Tablet] 1 - 2 tab PO Q4H #20 tablet MDD 6 07/28/16 Anemia: No Asthma: No Cancer: No Cardiac Disorders: Yes (HEART MURMUR) CVA: No COPD: Yes (LUNG NODULE) CHF: No DVT: No Dementia: No Diabetes: No GI Disorders: No Disorders: No HTN: No Hypercholesterolemia: No Liver Disease: No Seizures: Yes Thyroid Disease: No Other medical history: back problems - Surgical History Abdominal Surgery: No Appendectomy: No Cardiac Surgery: No Cholecystectomy: No Lung Surgery: Yes (MASS REMOVED) Neurologic Surgery: No Orthopedic Surgery: Yes (RIGHT SHOULDER SURGERY) - Family Disease History Family Disease History: Diabetes: Grandparents - Reproductive History (#): 6 Para: 3 Cervical CA: No Dysfunctional Uterine Bleeding: No Ectopic : No Endometrial CA: No Polycystic Ovaries: No Therapeutic (s) & number: No Tubal Ligation: No - Immunization History Td Vaccination: Yes Immunization Up to Date: Yes - Suicide/Smoking/Psychosocial Hx Smoking Status: Yes Smoking History: Current every day smoker Years of Tobacco Use: 0 Have you smoked in the past 12 months: Yes Number of Cigarettes Smoked Daily: 10 If you are a former smoker, when did you quit?: MAR 2013 Cigars Per Day: 0 Information on smoking cessation initiated: Yes 'Breaking Loose' booklet given: 04/24/17 Hx Alcohol Use: No Drug/Substance Use Hx: No Substance Use Type: None Hx Substance Use Treatment: No *Physical Exam - Vital Signs Last Vital Signs Temp Pulse Resp BP Pulse Ox 98.3 F 72 18 112/73 100 04/24/17 08:26 04/24/17 08:26 04/24/17 08:26 04/24/17 08:26 04/24/17 08:26 - Physical Exam General Appearance: Yes: Nourished, Appropriately Dressed HEENT: positive: EOMI, STEPHANIE, Pharyngeal Erythema Neck: positive: Supple. negative: Lymphadenopathy (R), Lymphadenopathy (L) Respiratory/Chest: positive: Lungs Clear, Normal Breath Sounds. negative: Chest Tender, Rhonchi, Stridor, Wheezing Cardiovascular: positive: Regular Rhythm, Regular Rate Gastrointestinal/Abdominal: positive: Normal Bowel Sounds, Soft Musculoskeletal: positive: Normal Inspection Extremity: positive: Normal Capillary Refill, Normal Inspection, Other (limited abduction of right shoulder, limited extension due to pain ) Heart Score/ECG Review - Electrocardiogram EKG: Normal Medical Decision Making - Medical Decision Making 04/24/17 09:53 cc: right shoulder pain woke up with the pain, states both arms feel weak pt c/o body aches no fever , had chills and sweats during the night neg abd pain neg diarrhea pt is allergic to ASA and ibuprofen 04/24/17 11:34 xrays are negative for fracture dislocation no evidence of infiltrate will dc home with supportive care, pt is to follow with her doctor this week for follow up *DC/Admit/Observation/Transfer Diagnosis at time of Disposition: Flu-like symptoms - Discharge Dispostion Disposition: HOME Condition at time of disposition: Good - Referrals - Patient Instructions Additional Instructions: drink pleanty of fluids rest at home follow with your doctor in 1-3 days for follow up call today to make appointment take your medication as prescribed please call your doctor eat small frequent meals, dry toast dry crackers, bland foods take tylenol 650mg every 4-6hrs for body aches but do not take if you are taking oxycodone with acetaminophen drink tea with honey and lemon this can help with sore throats and body aches - Post Discharge Activity Forms/Work/School Notes: Back to School
--- NOTE | 2017-04-24 12:42 | EKG ---
Test Reason : Blood Pressure : / mmHG Vent. Rate : 072 BPM Atrial Rate : 072 BPM P-R Int : 144 ms QRS Dur : 098 ms QT Int : 386 ms P-R-T Axes : 057 019 035 degrees QTc Int : 422 ms NORMAL SINUS RHYTHM WITH SINUS ARRHYTHMIA LOW VOLTAGE QRS BORDERLINE ECG WHEN COMPARED WITH ECG OF 31-MAR-2016 07:26, NO SIGNIFICANT CHANGE WAS FOUND Confirmed by RHODA GONZALEZ MD ([id number]) on 04/24/2017 12:42:06 PM Referred By: Confirmed By:RHODA GONZALEZ MD
== END 2017-04-24 11:41 | disposition home or self-care (01) ==
LOC: JERFT 08:14
DX: J11.1 Influenza due to unidentified influenza virus with other respiratory manifestations (principal); M54.5 Low back pain; M54.2 Cervicalgia; G89.29 Other chronic pain; G40.909 Epilepsy, unspecified, not intractable, without status epilepticus
CPT/HCPCS: 71046-TC-FY; 73030-TC-RT-FY; 84703; 87804; 93005; 93010; 99281-25

== ENCOUNTER 2017-05-20 23:02 | Emergency (ER) | payer MEDICARE, OTHER ==
--- NOTE | 2017-05-20 23:13 | PDOC ---
History of Present Illness - General Chief Complaint: Back Pain Stated Complaint: PAIN Time Seen by Provider: 05/20/17 23:12 - History of Present Illness Initial Comments: 05/20/17 23:12 GERD, seizures, cervical and lumbar radiculopathy, right shoulder impingement, reflex dystrophy, and depression The patient denies chest pain, shortness of breath, headache and dizziness. Denies fever, chills, nausea, vomit, diarrhea and constipation. Denies dysuria, frequency, urgency and hematuria. Allergies: 05/20/17 23:15 Past History - Past Medical History Allergies/Adverse Reactions: Allergies Allergy/AdvReac Type Severity Reaction Status Date / Time aspirin Allergy Mild Hives Verified 05/20/17 23:10 ibuprofen Allergy Mild Hives Verified 05/20/17 23:10 Home Medications: Ambulatory Orders Acetaminophen/Caffeine/Butalb [Fioricet -] 1 tab PO Q6H PRN 03/30/16 Oxycodone HCl/Acetaminophen [Oxycodone-Acetaminophen 10-325] 1 each PO Q4HWA PRN 03/30/16 Phentermine HCl 30 mg PO DAILY 03/30/16 Topiramate [Topamax] 25 mg PO BID 03/30/16 Divalproex Sodium [Depakote] 250 mg PO BID #60 tablet. 03/31/16 Ondansetron [Zofran *Odt*] 8 mg SL TID #30 od.tablet MDD 3 07/28/16 Oxycodone HCl/Acetaminophen [Percocet 5-325 mg Tablet] 1 - 2 tab PO Q4H #20 tablet MDD 6 07/28/16 levoFLOXacin [Levaquin] 750 mg PO DAILY #10 tab 07/28/16 Anemia: No Asthma: No Cancer: No Cardiac Disorders: Yes (HEART MURMUR) CVA: No COPD: Yes (LUNG NODULE) CHF: No DVT: No Dementia: No Diabetes: No GI Disorders: No Disorders: No HTN: No Hypercholesterolemia: No Liver Disease: No Seizures: Yes Thyroid Disease: No - Surgical History Abdominal Surgery: No Appendectomy: No Cardiac Surgery: No Cholecystectomy: No Lung Surgery: Yes (MASS REMOVED) Neurologic Surgery: No Orthopedic Surgery: Yes (RIGHT SHOULDER SURGERY) - Family Disease History Family Disease History: Diabetes: Grandparents - Reproductive History (#): 6 Para: 3 Cervical CA: No Dysfunctional Uterine Bleeding: No Ectopic : No Endometrial CA: No Polycystic Ovaries: No Therapeutic (s) & number: No Tubal Ligation: No - Immunization History Td Vaccination: Yes Immunization Up to Date: Yes - Suicide/Smoking/Psychosocial Hx Smoking Status: Yes Smoking History: Current every day smoker Years of Tobacco Use: 0 Have you smoked in the past 12 months: Yes Number of Cigarettes Smoked Daily: 10 If you are a former smoker, when did you quit?: MAR 2013 Cigars Per Day: 0 'Breaking Loose' booklet given: 04/24/17 Hx Alcohol Use: No Drug/Substance Use Hx: No Substance Use Type: None Hx Substance Use Treatment: No Review of Systems - Review of Systems Comments:: 05/20/17 23:13 GENERAL/CONSTITUTIONAL: No fever or chills. No weakness. HEAD, EYES, EARS, NOSE AND THROAT: No change in vision. No ear pain or discharge. No sore throat. CARDIOVASCULAR: No chest pain or shortness of breath RESPIRATORY: No cough, wheezing, or hemoptysis. GASTROINTESTINAL: No nausea, vomiting, diarrhea or constipation. GENITOURINARY: No dysuria, frequency, or change in urination. MUSCULOSKELETAL: No joint or muscle swelling or pain. No neck or back pain. SKIN: No rash NEUROLOGIC: No headache, vertigo, loss of consciousness, or change in strength/ sensation. ENDOCRINE: No increased thirst. No abnormal weight change HEMATOLOGIC/LYMPHATIC: No anemia, easy bleeding, or history of blood clots. ALLERGIC/IMMUNOLOGIC: No hives or skin allergy. *Physical Exam - Physical Exam Comments: 05/20/17 23:13 GENERAL: Awake, alert, and fully oriented, in no acute distress HEAD: No signs of trauma, normocephalic, atraumatic EYES: PERRLA, EOMI, sclera anicteric, conjunctiva clear ENT: Auricles normal inspection, hearing grossly normal, nares patent, oropharynx clear without exudates. Moist mucosa NECK: Normal ROM, supple, no lymphadenopathy, JVD, or masses LUNGS: No distress, speaks full sentences, clear to auscultation bilaterally HEART: Regular rate and rhythm, normal S1 and S2, no murmurs, rubs or gallops, peripheral pulses normal and equal bilaterally. ABDOMEN: Soft, nontender, normoactive bowel sounds. No guarding, no rebound. No masses EXTREMITIES: Normal inspection, Normal range of motion, no edema. No clubbing or cyanosis. NEUROLOGICAL: Cranial nerves II through XII grossly intact. Normal speech, normal gait, no focal sensorimotor deficits SKIN: Warm, Dry, normal turgor, no rashes or lesions noted.
[2017-05-20 23:19] VITALS: BP 112/71; PULSE 88; TEMP 97.9; BMI 39.4
--- NOTE | 2017-05-20 23:56 | PDOC ---
History of Present Illness - General Chief Complaint: Back Pain Stated Complaint: PAIN Time Seen by Provider: 05/20/17 23:12 History Source: Patient Exam Limitations: No Limitations - History of Present Illness Initial Comments: 05/21/17 00:18 Best Contact: Pmhx: Seizures/last sz 12/2016 Pshx: 2014: Right knee arthroscopy 2014: Right shoulder rotator cuff repair Allergies: Motrin/aspirin: Airway tightness LMP; x2 weeks ago REFUSES UPREG 36-year-old female presents to the emergency department complaining of left hip and anterior proximal left femur pain. Patient states while attempting to open up the refrigerator door, her left thigh/hip twisted causing 7/10 dull nonradiating intermittent discomfort that is exacerbated on weight-bear and alleviated minimally at rest. Patient denies falling, headache, nausea/vomiting , neck pains, back pains, abdominal discomfort, urinary symptoms, bladder or bowel dysfunction. Past History - Past Medical History Allergies/Adverse Reactions: Allergies Allergy/AdvReac Type Severity Reaction Status Date / Time aspirin Allergy Mild Hives Verified 05/20/17 23:10 ibuprofen Allergy Mild Hives Verified 05/20/17 23:10 Home Medications: Ambulatory Orders Acetaminophen/Caffeine/Butalb [Fioricet -] 1 tab PO Q6H PRN 03/30/16 Oxycodone HCl/Acetaminophen [Oxycodone-Acetaminophen 10-325] 1 each PO Q4HWA PRN 03/30/16 Phentermine HCl 30 mg PO DAILY 03/30/16 Topiramate [Topamax] 25 mg PO BID 03/30/16 Divalproex Sodium [Depakote] 250 mg PO BID #60 tablet. 03/31/16 Ondansetron [Zofran *Odt*] 8 mg SL TID #30 od.tablet MDD 3 07/28/16 Oxycodone HCl/Acetaminophen [Percocet 5-325 mg Tablet] 1 - 2 tab PO Q4H #20 tablet MDD 6 07/28/16 levoFLOXacin [Levaquin] 750 mg PO DAILY #10 tab 07/28/16 Anemia: No Asthma: No Cancer: No Cardiac Disorders: Yes (HEART MURMUR) CVA: No COPD: Yes (LUNG NODULE) CHF: No DVT: No Dementia: No Diabetes: No GI Disorders: No Disorders: No HTN: No Hypercholesterolemia: No Liver Disease: No Seizures: Yes Thyroid Disease: No - Surgical History Abdominal Surgery: No Appendectomy: No Cardiac Surgery: No Cholecystectomy: No Lung Surgery: Yes (MASS REMOVED) Neurologic Surgery: No Orthopedic Surgery: Yes (RIGHT SHOULDER SURGERY) - Family Disease History Family Disease History: Diabetes: Grandparents - Reproductive History (#): 6 Para: 3 Cervical CA: No Dysfunctional Uterine Bleeding: No Ectopic : No Endometrial CA: No Polycystic Ovaries: No Therapeutic (s) & number: No Tubal Ligation: No - Immunization History Td Vaccination: Yes Immunization Up to Date: Yes - Suicide/Smoking/Psychosocial Hx Smoking Status: Yes Smoking History: Current some day smoker Years of Tobacco Use: 0 Have you smoked in the past 12 months: Yes Number of Cigarettes Smoked Daily: 10 If you are a former smoker, when did you quit?: MAR 2013 Cigars Per Day: 0 Information on smoking cessation initiated: No 'Breaking Loose' booklet given: 04/24/17 Hx Alcohol Use: No Drug/Substance Use Hx: No Substance Use Type: None Hx Substance Use Treatment: No Trauma Specific PMHX - Complaint Specific PMHX Arthritis: No Back Injury: No Neck Injury: No Review of Systems - Review of Systems Able to Perform ROS?: Yes Comments:: 05/21/17 00:24 CONSTITUTIONAL: Absent: fever, chills, diaphoresis, generalized weakness, malaise, loss of appetite HEENT: Absent: rhinorrhea, nasal congestion, throat pain, throat swelling, difficulty swallowing, mouth swelling, ear pain, eye pain, visual Changes CARDIOVASCULAR: Absent: chest pain, loss of consciousness, palpitations, irregular heart rate, peripheral edema RESPIRATORY: Absent: cough, shortness of breath, dyspnea with exertion, orthopnea, wheezing, stridor, hemoptysis GASTROINTESTINAL: Absent: abdominal pain, abdominal distension, nausea, vomiting, diarrhea, constipation, melena, hematochezia GENITOURINARY: Absent: dysuria, frequency, urgency, hesitancy, hematuria, flank pain, genital pain MUSCULOSKELETAL: +left hip pain/ left ant prox thigh pain Absent: myalgia, arthralgia, joint swelling SKIN: Absent: rash, itching, pallor HEMATOLOGIC/IMMUNOLOGIC: Absent: easy bleeding, easy bruising, lymphadenopathy, frequent infections ENDOCRINE: Absent: unexplained weight gain, unexplained weight loss, heat intolerance, cold intolerance NEUROLOGIC: Absent: headache, focal weakness or paresthesias, dizziness, unsteady gait, seizure, mental status changes, bladder or bowel incontinence Is the patient limited Bangladeshi proficient: No *Physical Exam - Vital Signs Last Vital Signs Temp Pulse Resp BP Pulse Ox 97.9 F 88 16 112/71 99 05/20/17 23:11 05/20/17 23:11 05/20/17 23:11 05/20/17 23:11 05/20/17 23:11 - Physical Exam Comments: 05/21/17 00:24 GENERAL: Well developed, well nourished. Awake and alert. No acute distress. HEENT: Normocephalic, atraumatic. PERRLA, EOMI. No conjunctival pallor. Sclera are non- icteric. Moist mucous membranes. Oropharynx is clear. NECK: Supple. Full ROM. No JVD. Carotid pulses 2+ and symmetric, without bruits. No thyromegaly. No lymphadenopathy. CARDIOVASCULAR: Regular rate and rhythm. No murmurs, rubs, or gallops. Distal pulses are 2+ and symmetric. PULMONARY: No evidence of respiratory distress. Lungs clear to auscultation bilaterally. No wheezing, rales or rhonchi. ABDOMINAL: Soft. Non-tender. Non-distended. No rebound or guarding. No organomegaly. Normoactive bowel sounds. MUSCULOSKELETAL Normal range of motion at all joints. No bony deformities or tenderness. No CVA tenderness. EXTREMITIES: +left hip pain on valrus/valgus rotation. +pain to ant prox left femur No cyanosis. No clubbing. No edema. No calf tenderness. SKIN: Warm and dry. Normal capillary refill. No rashes. No jaundice. NEUROLOGICAL: Alert, awake, appropriate. Cranial nerves 2-12 intact. No deficits to light touch and temperature in face, upper extremities and lower extremities. No motor deficits in the in face, upper extremities and lower extremities. Normoreflexic in the upper and lower extremities. Normal speech. Toes are down- going bilaterally. Gait is normal without ataxia. ED Treatment Course - RADIOLOGY Radiograph Interpretation: 05/21/17 02:02 Xray left hip neg Xray left femur; neg *DC/Admit/Observation/Transfer Diagnosis at time of Disposition: Hip strain Qualifiers: Encounter type: initial encounter Laterality: left Qualified Code(s): S76.012A - Strain of muscle, fascia and tendon of left hip, initial encounter - Discharge Dispostion Disposition: HOME Condition at time of disposition: Stable Admit: No - Referrals Referrals: Sulaiman Howard MD [Staff Physician] - - Patient Instructions Printed Discharge Instructions: DI for Muscle Strain Additional Instructions: Ice; 20 mins on alternating with 20 mins off for 48 hours while awake. Rest Elevate Follow up with your orthopedic surgeon or the one listed on the discharge form. Return to the ER for severe/persistent/worsening symptoms, extremity numbness/ tingling sensation. - Post Discharge Activity
[2017-05-21] MEDS ORDERED: ACETAMINOPHEN 500 MG TABLET (FP) PO ONE (00:02)
[2017-05-21] MEDS ORDERED: ACETAMINOPHEN 325 MG TABLET (FP) ONE (00:16)
== END 2017-05-21 03:06 | disposition home or self-care (01) ==
LOC: JER 23:02
DX: S76.012A Strain of muscle, fascia and tendon of left hip, initial encounter (principal); X50.0XXA Overexertion from strenuous movement or load, initial encounter; X50.3XXA Overexertion from repetitive movements, initial encounter; Y93.89 Activity, other specified; Y92.000 Kitchen of unspecified non-institutional (private) residence as the place of occurrence of the external cause; J44.9 Chronic obstructive pulmonary disease, unspecified; R91.1 Solitary pulmonary nodule; F17.210 Nicotine dependence, cigarettes, uncomplicated
CPT/HCPCS: 73502-TC-LT-FY; 73552-TC-LT-FY; 99282-25

== ENCOUNTER 2018-01-14 15:52 | Emergency (ER) | payer MEDICARE, OTHER ==
[2018-01-14 16:19] VITALS: BP 113/75; PULSE 76; TEMP 98; BMI 39.4
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
[2018-01-14] MEDS ORDERED: ACETAMINOPHEN 500 MG TABLET (FP) PO ONE (17:32)
[2018-01-14] MEDS ORDERED: diazePAM 5 MG TABLET PO ONE (17:32)
[2018-01-14] MEDS ORDERED: ACETAMINOPHEN 500 MG TABLET (FP) ONE (17:36)
[2018-01-14] MEDS ORDERED: diazePAM 5 MG TABLET ONE (17:37)
== END 2018-01-14 18:50 | disposition home or self-care (01) ==
LOC: JERFT 15:52
DX: S29.012A Strain of muscle and tendon of back wall of thorax, initial encounter (principal); S96.811A Strain of other specified muscles and tendons at ankle and foot level, right foot, initial encounter; S80.11XA Contusion of right lower leg, initial encounter; M25.511 Pain in right shoulder; W10.8XXA Fall (on) (from) other stairs and steps, initial encounter; Y93.89 Activity, other specified; Y92.89 Other specified places as the place of occurrence of the external cause; Y99.8 Other external cause status; R01.1 Cardiac murmur, unspecified; Z87.09 Personal history of other diseases of the respiratory system
CPT/HCPCS: 73610-TC-RT-FY; 99281-25

== ENCOUNTER 2018-05-10 10:28 | Emergency (ER) | payer MEDICARE, OTHER ==
[2018-05-10 10:57] VITALS: BP 116/70; PULSE 71; TEMP 98.1; BMI 40.3
[2018-05-10] MEDS ORDERED: ACETAMINOPHEN 500 MG TABLET (FP) ONE (11:29)
--- NOTE | 2018-05-10 11:39 | PDOC ---
History of Present Illness - General Chief Complaint: Cold Symptoms Stated Complaint: SINUS INFECTION Time Seen by Provider: 05/10/18 11:05 History Source: Patient Exam Limitations: No Limitations - History of Present Illness Timing/Duration: reports: just prior to arrival, getting worse Past History - Past Medical History Allergies/Adverse Reactions: Allergies Allergy/AdvReac Type Severity Reaction Status Date / Time aspirin Allergy Mild Hives Verified 05/10/18 10:55 ibuprofen Allergy Mild Hives Verified 05/10/18 10:55 Home Medications: Ambulatory Orders Phentermine HCl 30 mg PO DAILY 03/30/16 Topiramate [Topamax] 25 mg PO BID 03/30/16 Divalproex Sodium [Depakote] 250 mg PO BID #60 tablet.dr 03/31/16 Fluticasone Propionate [Flonase Allergy Relief] 1 - 2 sprays NS BID #1 bottle Oxycodone HCl/Acetaminophen [Percocet 5-325 mg Tablet -] 1 - 2 tab PO Q4H PRN # 7 tablet MDD 4 01/14/18 Oseltamivir Phosphate [Tamiflu -] 75 mg PO BID #10 capsule 05/10/18 Anemia: No Asthma: No Cancer: No Cardiac Disorders: Yes (HEART MURMUR) CVA: No COPD: Yes (LUNG NODULE) CHF: No DVT: No Dementia: No Diabetes: No GI Disorders: No Disorders: No HTN: No Hypercholesterolemia: No Liver Disease: No Seizures: Yes Thyroid Disease: No - Surgical History Abdominal Surgery: No Appendectomy: No Cardiac Surgery: No Cholecystectomy: No Lung Surgery: Yes (MASS REMOVED) Neurologic Surgery: No Orthopedic Surgery: Yes (RIGHT SHOULDER SURGERY) - Family Disease History Family Disease History: Diabetes: Grandparents - Reproductive History (#): 6 Para: 3 Cervical CA: No Dysfunctional Uterine Bleeding: No Ectopic : No Endometrial CA: No Polycystic Ovaries: No Therapeutic (s) & number: No Tubal Ligation: No - Immunization History Td Vaccination: Yes Immunization Up to Date: Yes - Suicide/Smoking/Psychosocial Hx Smoking Status: Yes Smoking History: Unknown if ever smoked Years of Tobacco Use: 0 Have you smoked in the past 12 months: Yes Number of Cigarettes Smoked Daily: 10 If you are a former smoker, when did you quit?: MAR 2013 Cigars Per Day: 0 'Breaking Loose' booklet given: 04/24/17 Hx Alcohol Use: No Drug/Substance Use Hx: No Substance Use Type: None Hx Substance Use Treatment: No *Physical Exam - Vital Signs Last Vital Signs Temp Pulse Resp BP Pulse Ox 98.1 F 71 22 H 116/70 98 05/10/18 10:56 05/10/18 10:56 05/10/18 10:56 05/10/18 10:56 05/10/18 10:56 Moderate Sedation - Procedure Monitoring Vital Signs: Procedure Monitoring Vital Signs Temperature 98.1 F 05/10/18 10:56 Pulse Rate 71 05/10/18 10:56 Respiratory Rate 22 H 05/10/18 10:56 Blood Pressure 116/70 05/10/18 10:56 O2 Sat by Pulse Oximetry (%) 98 05/10/18 10:56 *DC/Admit/Observation/Transfer Diagnosis at time of Disposition: Influenzal acute upper respiratory infection - Discharge Dispostion Disposition: HOME Condition at time of disposition: Stable Decision to Admit order: No - Referrals - Patient Instructions Printed Discharge Instructions: DI for Viral Upper Respiratory Infection -- Adult Additional Instructions: Rest, drink lots of fluids: Teas, water, soups, Pedialyte Saltwater gargles Steamy showers/seem to face break up mucus Old-fashioned treatments help! Avoid contact with others until fevers and cough resolved as this is very contagious Lots of handwashing and good hygiene Continue [id number] medications for symptomatic relief Tylenol for fever and pain Take all of Tamiflu as directed: 1 tab every 12 hours for 5 days Followup with private physician in one to 2 days as needed or if worsening Return to emergency department for worsened symptoms, fevers, dehydration Influenza takes between 5 and 7 days for resolution To not participate in any activity, work, or school until fevers and cough are gone for at least one day - Post Discharge Activity Forms/Work/School Notes: Back to Work
== END 2018-05-10 11:51 | disposition home or self-care (01) ==
LOC: JERFT 10:28
DX: J11.1 Influenza due to unidentified influenza virus with other respiratory manifestations (principal)
CPT/HCPCS: 99281-25

== ENCOUNTER 2018-06-20 20:44 | Emergency (ER) | payer MEDICARE, OTHER ==
--- NOTE | 2018-06-20 21:05 | PDOC ---
Rapid Medical Evaluation Time Seen by Provider: 06/20/18 21:02 Medical Evaluation: Allergies Allergy/AdvReac Type Severity Reaction Status Date / Time aspirin Allergy Mild Hives Verified 05/10/18 10:55 ibuprofen Allergy Mild Hives Verified 05/10/18 10:55 06/20/18 21:02 I have performed a brief in-person evaluation of this patient. The patient presents with a chief complaint of:flu like symptoms x1 day with sore throat Pertinent physical exam findings: no pharyngeal erythema or exudates I have ordered the following: flu swab The patient will proceed to the ED for further evaluation. Discharge Disposition - Diagnosis Flu-like symptoms - Referrals - Patient Instructions - Post Discharge Activity
[2018-06-20 21:06] VITALS: BP 108/65; PULSE 74; TEMP 97.7; BMI 38.6
--- NOTE | 2018-06-20 22:34 | PDOC ---
Attending Attestation - HPI HPI: 06/21/18 00:19 The patient is a 37 year old female with a significant PMH of GERD, seizures, cervical and lumbar radiculopathy, right shoulder impingement, reflex dystrophy , and depression who presents to the emergency department for evaluation of 1 day of sharp chest pain radiating from the left chest to the sternum and back, with associated nausea and vomiting which began last night. Allergies: Aspirin Ibuprofen Social history: No reported - Physicial Exam PE: 06/21/18 00:19 GENERAL: (+)Obese. Awake, alert, and fully oriented, in no acute distress HEAD: No signs of trauma EYES: (+)Clear discharge from bilateral eyes. PERRLA, EOMI, sclera anicteric, conjunctiva clear ENT: Auricles normal inspection, hearing grossly normal, nares patent, oropharynx clear without exudates. Moist mucosa. No TM bulging, erythema, or fluid. NECK: Normal ROM, supple, no lymphadenopathy, JVD, or masses LUNGS: Breath sounds equal, clear to auscultation bilaterally. No wheezes, and no crackles HEART: Regular rate and rhythm, normal S1 and S2, no murmurs, rubs or gallops ABDOMEN: Soft, nontender, normoactive bowel sounds. No guarding, no rebound. No masses EXTREMITIES: Normal range of motion, no edema. No clubbing or cyanosis. No cords, erythema, or tenderness NEUROLOGICAL: Cranial nerves II through XII grossly intact. Normal speech, normal gait SKIN: Warm, Dry, normal turgor, no rashes or lesions noted. <Juliet Ortega - Last Filed: 06/21/18 00:19> - Resident Resident Name: Keiry Bashir - ED Attending Attestation I have performed the following: I have examined & evaluated the patient, The case was reviewed & discussed with the resident, I agree w/resident's findings & plan, Exceptions are as noted - Medical Decision Making 06/20/18 22:34 I, Dr. Sheryl Bernal, DO, attest that this document has been prepared under my direction and personally reviewed by me in its entirety. I further attest, that it accurately reflects all work, treatment, procedures and medical decision -making performed by me. 06/20/18 23:25 a/p: 37yo female with cp since last night -assoc with n/v last night and this am -sharp pain to the chest -no PE risk factors, perc negative -will send labs, ekg, cxr, flu swab -will give tylenol, ivf hydration -hx of acid reflux- felt sour taste to back of mouth, doesn't take her omeprazole -follows with Dr. Che for her ENT and acid reflux -will monitor and reassess 06/21/18 00:49 flu negative labs reviewed trop negative will repeat trop at 1:44a cxr clear no elevated wbc 06/21/18 02:22 pt felt better resident discharged the patient <Sheryl Bernal - Last Filed: 06/21/18 02:22> Heart Score/ECG Review - ECG Intrepretation Comment:: 06/20/18 23:40 sinus at 74, nl axis, nl interval, no acute st/t wave findings <Sheryl Bernal - Last Filed: 06/21/18 02:22> Attestations - Attestations 06/21/18 00:19 Documentation prepared by Juliet Ortega, acting as medical device for Sheryl Bernal DO. <Juliet Ortega - Last Filed: 06/21/18 00:19>
[2018-06-20] MEDS ORDERED: ACETAMINOPHEN 1000 MG/100 ML VIAL (NON FORMULARY) IVPB ONE (22:45)
[2018-06-20] MEDS ORDERED: SODIUM CHLORIDE 1,000 ML IV STA (22:45)
[2018-06-20 22:58] LABS: BASO % 0.5 % (0-2.0); EOS % 5.8 % (0-4.5); HEMATOCRIT 38.3 % (32.4-45.2); HEMOGLOBIN 12.6 GM/dL (10.7-15.3); LYMPH % 28.3 % (8-40); MCH 28.6 pg (25.7-33.7); MCHC 32.9 g/dl (32.0-36.0); MEAN CELL VOLUME 87.1 fl (80-96); MEAN PLT VOLUME 8.5 fl (7.5-11.1); MONO % 9.3 % (3.8-10.2); NEUT % 56.1 % (42.8-82.8); PLATELET COUNT 205 K/MM3 (134-434); WHITE BLOOD COUNT 6.9 K/mm3 (4.0-10.0)
[2018-06-20] MEDS ORDERED: ACETAMINOPHEN INJECTION 100 ML IVPB ONE (23:07)
[2018-06-20 23:13] LABS: INR 0.99 (0.83-1.09); PROTHROMBIN TIME (PATIENT) 11.7 SEC (9.7-13.0)
[2018-06-20 23:16] LABS: ACTIVATED PTT 31.1 SECONDS (25.2-36.5)
[2018-06-20 23:20] LABS: URINE APPEARANCE CLEAR; URINE BILIRUBIN NEGATIVE (NEGATIVE); URINE COLOR YELLOW; URINE GLUCOSE (UA) NEGATIVE (NEGATIVE); URINE KETONE NEGATIVE (NEGATIVE); URINE LEUK ESTERASE NEGATIVE (NEGATIVE); URINE NITRITE NEGATIVE (NEGATIVE); URINE PROTEIN NEGATIVE (NEGATIVE)
[2018-06-20] MEDS ORDERED: ONDANSETRON 4 MG/2 ML VIAL IVPUSH ONE (23:21)
[2018-06-20] MEDS ORDERED: FAMOTIDINE 20 MG/50 ML IVPB 20 MG/50 ML MG IVPB ONE (23:21)
[2018-06-20 23:23] LABS: ALBUMIN 3.4 g/dl (3.4-5.0); ALK PHOS 75 U/L (45-117); BILIRUBIN,TOTAL 0.3 mg/dL (0.2-1); CALCIUM 8.6 mg/dL (8.5-10.1); CO2 23 mmol/L (21-32); CREATININE 0.8 mg/dL (0.55-1.3); LIPASE 161 U/L (73-393); POTASSIUM 4.2 mmol/L (3.5-5.1); SGOT/AST 18 U/L (15-37); SGPT/ALT 15 U/L (13-61); SODIUM 136 mmol/L (136-145); TOT PROT 6.7 g/dl (6.4-8.2)
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
[2018-06-21 00:01] LABS: ANION GAP 4 MMOL/L (8-16); BLOOD UREA NITROGEN 17 mg/dL (7-18); CHLORIDE 109 mmol/L (98-107); GLUCOSE,RANDOM 87 mg/dL (74-106)
[2018-06-21] MEDS ORDERED: morphine CARPU-JECT 2 MG/1 ML DISP.SYRIN IVPUSH ONE (00:28)
--- NOTE | 2018-06-21 01:52 | PDOC ---
*Physical Exam - Vital Signs Last Vital Signs Temp Pulse Resp BP Pulse Ox 97.7 F 74 17 108/65 100 06/20/18 21:03 06/20/18 21:03 06/20/18 21:03 06/20/18 21:03 06/20/18 21:03 ED Treatment Course - LABORATORY CBC & Chemistry Diagram: 06/20/18 22:44 06/20/18 22:44 - ADDITIONAL ORDERS Additional order review: Laboratory Results 06/20/18 06/20/18 06/20/18 22:46 22:44 22:44 PT with INR INR PTT (Actin FS) Sodium Potassium Chloride Carbon Dioxide Anion Gap BUN Creatinine Creat Clearance w eGFR Random Glucose Calcium Total Bilirubin AST ALT Alkaline Phosphatase Troponin I < 0.02 Total Protein Albumin Lipase Serum , Qual Negative Urine Color Yellow Urine Appearance Clear Urine pH 7.0 Ur Specific [place] 1.024 Urine Protein Negative Urine Glucose (UA) Negative Urine Ketones Negative Urine Blood Negative Urine Nitrite Negative Urine Bilirubin Negative Urine Urobilinogen 1.0 Ur Leukocyte Esterase Negative 06/20/18 06/20/18 22:44 22:44 PT with INR 11.70 INR 0.99 PTT (Actin FS) 31.1 Sodium 136 Potassium 4.2 Chloride 109 H Carbon Dioxide 23 Anion Gap 4 L BUN 17 Creatinine 0.8 Creat Clearance w eGFR 80.27 Random Glucose 87 Calcium 8.6 Total Bilirubin 0.3 AST 18 ALT 15 Alkaline Phosphatase 75 Troponin I Total Protein 6.7 Albumin 3.4 Lipase 161 Serum , Qual Urine Color Urine Appearance Urine pH Ur Specific [place] Urine Protein Urine Glucose (UA) Urine Ketones Urine Blood Urine Nitrite Urine Bilirubin Urine Urobilinogen Ur Leukocyte Esterase 06/20/18 22:44 RBC 4.40 MCV 87.1 MCHC 32.9 RDW 14.0 MPV 8.5 Neutrophils % 56.1 D Lymphocytes % 28.3 D Monocytes % 9.3 Eosinophils % 5.8 H D Basophils % 0.5 - Medications Given in the ED: ED Medications Discontinued Medications Generic Name Dose Route Start Last Admin Trade Name Freq PRN Reason Stop Dose Admin Sodium Chloride 1,000 mls @ 1,000 mls/hr 06/20/18 22:45 06/20/18 23:03 Normal Saline - IV 06/20/18 23:44 1,000 mls/hr ASDIR STA Administration *DC/Admit/Observation/Transfer Diagnosis at time of Disposition: Flu-like symptoms, Flu - Discharge Dispostion Disposition: HOME Condition at time of disposition: Stable - Referrals - Patient Instructions Printed Discharge Instructions: DI for Viral Upper Respiratory Infection -- Adult Additional Instructions: You were seen in the emergency room today for chest pain and cold like symptoms. The labs, Xray and EKG are normal. Keep yourself well hydrated. Take Tylenol for the pain as needed I recommend making an appointment with your primary care doctor this week. Come back to the emergency room if chest pain gets worse, you have problems breathing, you pass out or if any new concerning symptom develops. Thank you - Post Discharge Activity
--- NOTE | 2018-06-21 11:46 | EKG ---
Test Reason : Blood Pressure : / mmHG Vent. Rate : 074 BPM Atrial Rate : 074 BPM P-R Int : 156 ms QRS Dur : 098 ms QT Int : 396 ms P-R-T Axes : 027 014 027 degrees QTc Int : 439 ms NORMAL SINUS RHYTHM WITH SINUS ARRHYTHMIA NORMAL ECG WHEN COMPARED WITH ECG OF 24-APR-2017 08:22, NO SIGNIFICANT CHANGE WAS FOUND Confirmed by CRIS JUNE MD ([id number]) on 06/21/2018 11:46:30 AM Referred By: Confirmed By:CRIS JUNE MD
== END 2018-06-21 02:09 | disposition home or self-care (01) ==
LOC: JER 20:44
PROC: 3E0337Z Introduction of Electrolytic and Water Balance Substance into Peripheral Vein, Percutaneous Approach (ICD-10-PCS; principal; 2018-06-20)
DX: J11.1 Influenza due to unidentified influenza virus with other respiratory manifestations (principal); K21.9 Gastro-esophageal reflux disease without esophagitis
CPT/HCPCS: 36415; 71046-TC-FY; 80053; 81003; 83690; 84484; 84703; 85025; 85610; 85730; 87804; 93005; 93010; 99281-25; J7030

== ENCOUNTER 2018-08-22 19:31 | Emergency (ER) | payer MEDICARE, OTHER | END 2018-08-23 00:26 | disposition home or self-care (01) | LOC: JER 08-23 00:26 ==

== ENCOUNTER 2018-12-16 10:26 | Inpatient (IN) | payer MEDICARE, OTHER ==
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
[2018-12-16] MEDS ORDERED: DEXAMETHASONE LIQUID 0.5 MG/5 ML PO ONE (11:19)
[2018-12-16] MEDS ORDERED: LIDOCAINE 5% TOPICAL PATCH TP ONE (11:20)
[2018-12-16] MEDS ORDERED: DEXAMETHASONE SOD PHOSPHATE 10 MG/1 ML VIAL ONE (11:26)
[2018-12-16] MEDS ORDERED: LIDOCAINE 5% TOPICAL PATCH ONE (11:26)
[2018-12-16] MEDS ORDERED: ACETAMINOPHEN 500 MG TABLET (FP) PO ONE (11:54)
[2018-12-16] MEDS ORDERED: ONDANSETRON 4 MG/2 ML VIAL IVPUSH ONE (12:35)
[2018-12-16] MEDS ORDERED: SODIUM CHLORIDE 1,000 ML IV STA (12:35)
[2018-12-16] MEDS ORDERED: ACETAMINOPHEN 1000 MG/100 ML VIAL (NON FORMULARY) IVPB ONE (12:35)
[2018-12-16] MEDS ORDERED: morphine CARPU-JECT 4 MG/1 ML DISP.SYRIN IVPUSH ONE (12:38)
[2018-12-16] MEDS ORDERED: morphine SULFATE 4 MG/ML VIAL ONE (12:49)
[2018-12-16] MEDS ORDERED: ACETAMINOPHEN INJECTION 100 ML IVPB ONE (12:49)
[2018-12-16] MEDS ORDERED: ONDANSETRON 4 MG/2 ML VIAL ONE (12:49)
[2018-12-16 13:12] LABS: BASO % 0.7 % (0-2.0); EOS % 2.7 % (0-4.5); HEMATOCRIT 39.2 % (32.4-45.2); HEMOGLOBIN 12.7 GM/dL (10.7-15.3); LYMPH % 24.4 % (8-40); MCHC 32.3 g/dl (32.0-36.0); MEAN CELL VOLUME 86.6 fl (80-96); MEAN PLT VOLUME 7.9 fl (7.5-11.1); MONO % 4.6 % (3.8-10.2); NEUT % 67.6 % (42.8-82.8); PLATELET COUNT 240 K/MM3 (134-434); RBC 4.53 M/mm3 (3.60-5.2); RDW 13.9 % (11.6-15.6); WHITE BLOOD COUNT 6.8 K/mm3 (4.0-10.0)
[2018-12-16 13:21] LABS: INR 1.01 (0.83-1.09); PROTHROMBIN TIME (PATIENT) 11.9 SEC (9.7-13.0)
[2018-12-16 13:54] LABS: ALBUMIN 3.6 g/dl (3.4-5.0); ALK PHOS 80 U/L (45-117); ANION GAP 5 MMOL/L (8-16); BILIRUBIN,TOTAL 0.4 mg/dL (0.2-1); BLOOD UREA NITROGEN 15.3 mg/dL (7-18); CALCIUM 8.5 mg/dL (8.5-10.1); CHLORIDE 106 mmol/L (98-107); CO2 28 mmol/L (21-32); CREATININE 0.8 mg/dL (0.55-1.3); GLUCOSE,RANDOM 82 mg/dL (74-106); POTASSIUM 4.1 mmol/L (3.5-5.1); SGOT/AST 11 U/L (15-37); SGPT/ALT 12 U/L (13-61); SODIUM 139 mmol/L (136-145); TOT PROT 6.6 g/dl (6.4-8.2)
[2018-12-16 14:10] LABS: PH,URINE 5.5 (5.0-8.0); URINE APPEARANCE CLEAR; URINE BILIRUBIN NEGATIVE (NEGATIVE); URINE COLOR YELLOW; URINE GLUCOSE (UA) NEGATIVE (NEGATIVE); URINE KETONE NEGATIVE (NEGATIVE); URINE LEUK ESTERASE NEGATIVE (NEGATIVE); URINE NITRITE NEGATIVE (NEGATIVE); URINE PROTEIN NEGATIVE (NEGATIVE); URINE UROBILINOGEN 0.2 mg/dL (0.2-1.0)
[2018-12-16] MEDS ORDERED: diazePAM 5 MG TABLET PO ONE (15:19)
[2018-12-16] MEDS ORDERED: diazePAM 5 MG TABLET ONE (15:27)
[2018-12-16] MEDS: SODIUM CHLORIDE 1,000 ML IV SCH (16:36)
--- NOTE | 2018-12-16 16:44 | EKG ---
Test Reason : Blood Pressure : / mmHG Vent. Rate : 067 BPM Atrial Rate : 067 BPM P-R Int : 166 ms QRS Dur : 096 ms QT Int : 422 ms P-R-T Axes : 055 022 027 degrees QTc Int : 445 ms NORMAL SINUS RHYTHM WITH SINUS ARRHYTHMIA NORMAL ECG WHEN COMPARED WITH ECG OF 20-JUN-2018 23:27, NO SIGNIFICANT CHANGE WAS FOUND Confirmed by RHODA GONZALEZ MD ([id number]) on 12/16/2018 4:43:49 PM Referred By: Confirmed By:RHODA GONZALEZ MD
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
[2018-12-16] MEDS: oxyCODONE HCL 5 MG TABLET PO PRN (18:13)
[2018-12-16] MEDS: ACETAMINOPHEN 1000 MG/100 ML VIAL (NON FORMULARY) IVPB PRN (19:48)
[2018-12-16 19:54] VITALS: BMI 46.5
[2018-12-16] MEDS: diazePAM 5 MG TABLET PO PRN (21:57)
[2018-12-16] MEDS ORDERED: LIDOCAINE PATCH REMOVAL MC SCH (22:00)
[2018-12-17] MEDS: oxyCODONE HCL 5 MG TABLET PO PRN ×4 (00:04→18:25)
[2018-12-17] MEDS: ACETAMINOPHEN 1000 MG/100 ML VIAL (NON FORMULARY) IVPB PRN ×3 (01:12→16:02)
[2018-12-17 07:47] LABS: BASO % 0.4 % (0-2.0); HEMATOCRIT 37.5 % (32.4-45.2); HEMOGLOBIN 12.3 GM/dL (10.7-15.3); LYMPH % 12.8 % (8-40); MCH 28.2 pg (25.7-33.7); MCHC 32.7 g/dl (32.0-36.0); MEAN CELL VOLUME 86.1 fl (80-96); MEAN PLT VOLUME 8.5 fl (7.5-11.1); MONO % 4.5 % (3.8-10.2); NEUT % 82.3 % (42.8-82.8); PLATELET COUNT 248 K/MM3 (134-434); RBC 4.35 M/mm3 (3.60-5.2); RDW 13.6 % (11.6-15.6); WHITE BLOOD COUNT 11.1 K/mm3 (4.0-10.0)
[2018-12-17 08:28] LABS: ALBUMIN 3.5 g/dl (3.4-5.0); BILIRUBIN,TOTAL 0.4 mg/dL (0.2-1); BLOOD UREA NITROGEN 14.2 mg/dL (7-18); CALCIUM 8.5 mg/dL (8.5-10.1); CREATININE 0.7 mg/dL (0.55-1.3); MAGNESIUM 1.7 mg/dL (1.8-2.4); POTASSIUM 4.3 mmol/L (3.5-5.1); TOT PROT 6.5 g/dl (6.4-8.2)
[2018-12-17] MEDS: diazePAM 5 MG TABLET PO PRN ×2 (10:26→19:42)
[2018-12-17] MEDS: SODIUM CHLORIDE 1,000 ML IV SCH (12:17)
[2018-12-17] MEDS ORDERED: MAGNESIUM SULF 50% (8.12 MEQ/2 ML-1 GM VIAL) IVPB ONE (13:30)
[2018-12-17] MEDS: BACLOFEN 10 MG TABLET (FP) PO SCH ×2 (14:16→21:04)
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
[2018-12-17] MEDS ORDERED: DOCUSATE SODIUM 100 MG CAPSULE (FP) PO PRN (15:15)
[2018-12-17] MEDS ORDERED: SENNOSIDES 8.6MG TABLET (FP) PO PRN (15:15)
[2018-12-17] MEDS ORDERED: GABAPENTIN 100 MG CAPSULE (FP) PO ONE (20:52)
[2018-12-17] MEDS: HEPARIN NA (PORCINE) 5,000 UNITS/ML 1ML VIAL SQ SCH (21:04)
[2018-12-18] MEDS: oxyCODONE HCL 5 MG TABLET PO PRN ×4 (01:04→21:02)
[2018-12-18] MEDS: BACLOFEN 10 MG TABLET (FP) PO SCH ×3 (06:03→21:01)
[2018-12-18] MEDS ORDERED: MAG HYDROX/AL HYDROX/SIMETH -MYLANTA- ORAL SUSPENSION PO ONE (10:20)
[2018-12-18] MEDS: HEPARIN NA (PORCINE) 5,000 UNITS/ML 1ML VIAL SQ SCH ×2 (10:23→21:01)
[2018-12-18] MEDS: diazePAM 5 MG TABLET PO PRN ×2 (10:24→18:30)
[2018-12-18] MEDS ORDERED: GABAPENTIN 100 MG CAPSULE (FP) PO SCH ×2 (10:30→22:00)
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
[2018-12-18] MEDS ORDERED: PT OWN MED DRAWER 7, Y5N ONE (10:53)
[2018-12-18] MEDS: LIDOCAINE 5% TOPICAL PATCH TP SCH (11:14)
[2018-12-18] MEDS: GABAPENTIN 100 MG CAPSULE (FP) PO SCH ×2 (11:14→21:01)
[2018-12-18] MEDS: LIDOCAINE PATCH REMOVAL MC SCH (22:44)
[2018-12-19] MEDS: oxyCODONE HCL 5 MG TABLET PO PRN ×2 (03:24→09:32)
[2018-12-19] MEDS: BACLOFEN 10 MG TABLET (FP) PO SCH ×3 (05:28→23:13)
[2018-12-19] MEDS: diazePAM 5 MG TABLET PO PRN (05:29)
[2018-12-19 08:12] LABS: BASO % 0.6 % (0-2.0); EOS % 1.1 % (0-4.5); HEMOGLOBIN 12.3 GM/dL (10.7-15.3); LYMPH % 32.5 % (8-40); MCH 28.1 pg (25.7-33.7); MCHC 32.3 g/dl (32.0-36.0); MEAN CELL VOLUME 86.9 fl (80-96); MEAN PLT VOLUME 8.5 fl (7.5-11.1); MONO % 7.1 % (3.8-10.2); NEUT % 58.7 % (42.8-82.8); PLATELET COUNT 232 K/MM3 (134-434); RBC 4.38 M/mm3 (3.60-5.2); RDW 14.4 % (11.6-15.6); WHITE BLOOD COUNT 7.9 K/mm3 (4.0-10.0)
[2018-12-19 08:48] LABS: ALBUMIN 3.2 g/dl (3.4-5.0); BILIRUBIN,TOTAL 0.4 mg/dL (0.2-1); BLOOD UREA NITROGEN 15.6 mg/dL (7-18); CALCIUM 8.4 mg/dL (8.5-10.1); CREATININE 0.9 mg/dL (0.55-1.3); MAGNESIUM 1.8 mg/dL (1.8-2.4); POTASSIUM 4.4 mmol/L (3.5-5.1); TOT PROT 5.9 g/dl (6.4-8.2)
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
[2018-12-19] MEDS: GABAPENTIN 100 MG CAPSULE (FP) PO SCH ×2 (09:34→23:12)
[2018-12-19] MEDS: HEPARIN NA (PORCINE) 5,000 UNITS/ML 1ML VIAL SQ SCH ×2 (09:36→23:13)
[2018-12-19] MEDS ORDERED: FLU VACCINE QUAD 60 MCG/0.5 ML (MDV 19-20) IM ONE (10:00)
[2018-12-19] MEDS ORDERED: ONDANSETRON 4 MG/2 ML VIAL IVPUSH PRN (11:16)
[2018-12-19] MEDS ORDERED: ACETAMINOPHEN 325 MG TABLET (FP) PO PRN (11:17)
[2018-12-19] MEDS: LIDOCAINE 5% TOPICAL PATCH TP SCH (12:59)
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
[2018-12-19] MEDS: LIDOCAINE PATCH REMOVAL MC SCH (23:55)
[2018-12-20] MEDS: oxyCODONE HCL 5 MG TABLET PO PRN ×2 (06:03→12:59)
[2018-12-20] MEDS: BACLOFEN 10 MG TABLET (FP) PO SCH ×3 (06:04→21:26)
[2018-12-20 09:02] LABS: BASO % 0.5 % (0-2.0); EOS % 1.1 % (0-4.5); HEMATOCRIT 37.1 % (32.4-45.2); HEMOGLOBIN 12.3 GM/dL (10.7-15.3); LYMPH % 21.8 % (8-40); MCH 28.5 pg (25.7-33.7); MCHC 33.2 g/dl (32.0-36.0); MEAN CELL VOLUME 85.9 fl (80-96); MEAN PLT VOLUME 8.2 fl (7.5-11.1); NEUT % 69.6 % (42.8-82.8); PLATELET COUNT 235 K/MM3 (134-434); RBC 4.31 M/mm3 (3.60-5.2); RDW 14.1 % (11.6-15.6); WHITE BLOOD COUNT 7.4 K/mm3 (4.0-10.0)
[2018-12-20 09:38] LABS: ALBUMIN 3.2 g/dl (3.4-5.0); BILIRUBIN,TOTAL 0.8 mg/dL (0.2-1); BLOOD UREA NITROGEN 11.2 mg/dL (7-18); CALCIUM 8.8 mg/dL (8.5-10.1); CREATININE 0.8 mg/dL (0.55-1.3); MAGNESIUM 1.8 mg/dL (1.8-2.4); POTASSIUM 4.2 mmol/L (3.5-5.1); TOT PROT 6.3 g/dl (6.4-8.2)
[2018-12-20] MEDS: GABAPENTIN 100 MG CAPSULE (FP) PO SCH ×2 (10:33→21:26)
[2018-12-20] MEDS: HEPARIN NA (PORCINE) 5,000 UNITS/ML 1ML VIAL SQ SCH ×2 (10:33→21:24)
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
[2018-12-20] MEDS: LIDOCAINE 5% TOPICAL PATCH TP SCH (10:42)
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
[2018-12-20] MEDS: LIDOCAINE PATCH REMOVAL MC SCH (21:27)
[2018-12-21] MEDS: oxyCODONE HCL 5 MG TABLET PO PRN (06:43)
[2018-12-21] MEDS: BACLOFEN 10 MG TABLET (FP) PO SCH ×2 (06:43→14:20)
[2018-12-21 08:06] LABS: BASO % 0.3 % (0-2.0); EOS % 1.3 % (0-4.5); HEMATOCRIT 36.7 % (32.4-45.2); HEMOGLOBIN 12.2 GM/dL (10.7-15.3); LYMPH % 21.6 % (8-40); MCH 28.5 pg (25.7-33.7); MCHC 33.2 g/dl (32.0-36.0); MEAN CELL VOLUME 85.9 fl (80-96); MEAN PLT VOLUME 8.2 fl (7.5-11.1); MONO % 7.3 % (3.8-10.2); NEUT % 69.5 % (42.8-82.8); PLATELET COUNT 229 K/MM3 (134-434); RBC 4.27 M/mm3 (3.60-5.2); RDW 13.9 % (11.6-15.6); WHITE BLOOD COUNT 7.2 K/mm3 (4.0-10.0)
[2018-12-21 08:31] LABS: ALBUMIN 3.2 g/dl (3.4-5.0); BILIRUBIN,TOTAL 0.7 mg/dL (0.2-1); BLOOD UREA NITROGEN 13.3 mg/dL (7-18); CALCIUM 8.7 mg/dL (8.5-10.1); CREATININE 0.8 mg/dL (0.55-1.3); MAGNESIUM 1.8 mg/dL (1.8-2.4); POTASSIUM 4.4 mmol/L (3.5-5.1); TOT PROT 6.3 g/dl (6.4-8.2)
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
[2018-12-21] MEDS: GABAPENTIN 100 MG CAPSULE (FP) PO SCH (09:43)
[2018-12-21] MEDS: HEPARIN NA (PORCINE) 5,000 UNITS/ML 1ML VIAL SQ SCH (09:45)
[2018-12-21] MEDS ORDERED: FLU VACCINE QUAD 60 MCG/0.5 ML (MDV 19-20) IM ONE (10:15)
[2018-12-21] MEDS: LIDOCAINE 5% TOPICAL PATCH TP SCH (13:10)
[2018-12-21 13:40] VITALS: BP 104/65; PULSE 73
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
[2018-12-21 19:25] VITALS: TEMP 98
== END 2018-12-21 20:04 | DRG 347 ==
LOC: JER 10:26 → JERFT 10:26 → JERBED 15:25 → J5S 17:04 → OBSVTOIN 12-18 13:41 → J5S 12-19 18:22
PROVIDERS: ADMIT Hospitalist; ATTEND Nurse Practitioner Family
DX: M54.41 Lumbago with sciatica, right side (principal); E66.01 Morbid (severe) obesity due to excess calories; Z68.42 Body mass index [BMI] 45.0-49.9, adult; G40.909 Epilepsy, unspecified, not intractable, without status epilepticus; K21.9 Gastro-esophageal reflux disease without esophagitis; F32.9 Major depressive disorder, single episode, unspecified; G90.50 Complex regional pain syndrome I, unspecified; M54.16 Radiculopathy, lumbar region; M25.571 Pain in right ankle and joints of right foot; F17.210 Nicotine dependence, cigarettes, uncomplicated; M54.12 Radiculopathy, cervical region; V89.2XXA Person injured in unspecified motor-vehicle accident, traffic, initial encounter; Y93.89 Activity, other specified; Y92.488 Other paved roadways as the place of occurrence of the external cause; Y99.8 Other external cause status
CPT/HCPCS: 36415; 72050-TC-FY; 72070-TC-FY; 72100-TC-FY; 72125-TC; 72128-TC; 72131-TC; 73030-TC-RT-FY; 73610-TC-RT-FY; 73630-TC-RT-FY; 80053; 81003; 82550; 83735; 84484; 84702; 85025; 85610; 93005; 93010; 94010; 95860-TC; 97116-GP; 97162-GP; 99283-25; G0378; J0131; J0475; J1644; J7030; Q2036

== ENCOUNTER 2019-04-15 10:25 | Emergency (ER) | payer MEDICARE, OTHER ==
[2019-04-15 10:44] VITALS: BP 154/96; PULSE 92; TEMP 100.7; BMI 42.9
[2019-04-15] MEDS ORDERED: ACETAMINOPHEN 325 MG TABLET (FP) ONE (10:55)
[2019-04-15] MEDS ORDERED: ACETAMINOPHEN 325 MG TABLET (FP) PO ONE (10:58)
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
== END 2019-04-15 11:54 | disposition home or self-care (01) ==
LOC: JERFT 10:25
DX: J11.1 Influenza due to unidentified influenza virus with other respiratory manifestations (principal); G40.909 Epilepsy, unspecified, not intractable, without status epilepticus; R01.1 Cardiac murmur, unspecified
CPT/HCPCS: 99281-25

== ENCOUNTER 2019-11-09 17:02 | Emergency (ER) | payer MEDICARE, OTHER ==
[2019-11-09 17:12] VITALS: TEMP 98.1; BMI 44.6
[2019-11-09] MEDS ORDERED: PHENAZOPYRIDINE HCL 100 MG TABLET (FP) PO ONE (17:33)
[2019-11-09] MEDS ORDERED: PHENAZOPYRIDINE HCL 100 MG TABLET (FP) ONE (17:34)
--- NOTE | 2019-11-09 18:11 | PDOC ---
History of Present Illness - General Chief Complaint: Pain, Acute Stated Complaint: ABDPAIN Time Seen by Provider: 11/09/19 17:16 History Source: Patient Exam Limitations: Clinical Condition - History of Present Illness Initial Comments: 11/09/19 18:04 Morbidly obese patient with no significant past medical history present with complaint of 2-day history of suprapubic and left pelvic cramping pain which started as mild yesterday and has been worsening since having sex last night. Patient reported pain as muscles in the lower abdomen stretching. Patient wants to make sure her IUD is in place. Patient does not recall last menstrual period since she has IUD and has not been having it for many months. Patient does not know what type of IUD she has. Patient also has been reporting infrequent bowel movement and feels she might be a little constipated. Denies urinary frequency, dysuria, burning with urination, cough, shortness of breath, chest pain, diarrhea. Denies vaginal bleeding or discharge. Patient sexually active with one partner and does not always use condom. Is this a multiple visit Asthma Patient?: No Timing/Duration: getting worse, other (2 days) Past History - Medical History Allergies/Adverse Reactions: Allergies Allergy/AdvReac Type Severity Reaction Status Date / Time aspirin Allergy Mild Hives Verified 11/09/19 17:05 ibuprofen Allergy Mild Hives Verified 11/09/19 17:05 Home Medications: Ambulatory Orders Doxycycline Hyclate [Vibramycin] 100 mg PO BID 7 Days #14 capsule 11/09/19 Mag Hydrox/Aluminum Hyd/Simeth [Maalox Advanced Suspension] 30 ml PO Q8H PRN #200 ml 11/09/19 Polyethylene Glycol 3350 [Miralax (For Daily Use) -] 17 gm PO DAILY #1 bottle 11/09/19 Anemia: No Asthma: No Cancer: No Cardiac Disorders: Yes (HEART MURMUR) CVA: No COPD: Yes (LUNG NODULE) CHF: No DVT: No Dementia: No Diabetes: No GI Disorders: No Disorders: No HTN: No Hypercholesterolemia: No Liver Disease: No Seizures: Yes Thyroid Disease: No - Surgical History Abdominal Surgery: No Appendectomy: No Cardiac Surgery: No Cholecystectomy: No Lung Surgery: Yes (MASS REMOVED) Neurologic Surgery: No Orthopedic Surgery: Yes (RIGHT SHOULDER SURGERY) - Reproductive History Is Patient Now?: No (#): 6 Para: 3 Cervical CA: No Dysfunctional Uterine Bleeding: No Ectopic : No Endometrial CA: No Polycystic Ovaries: No Therapeutic (s) & number: No Tubal Ligation: No - Immunization History Td Vaccination: Yes Immunization Up to Date: Yes - Psycho-Social/Smoking History Smoking Status: Yes Smoking History: Current some day smoker Years of Tobacco Use: 0 Have you smoked in the past 12 months: Yes Number of Cigarettes Smoked Daily: 4 If you are a former smoker, when did you quit?: MAR 2013 Cigars Per Day: 4 Information on smoking cessation initiated: No 'Breaking Loose' booklet given: 12/16/18 - Substance Abuse Hx (Audit-C & DAST Scrn) How often the patient has a drink containing alcohol: Monthly or less How often the patient has six or more drinks on one occasion: Never Score: In Men: 4 or > Positive; In Women: 3 or > Positive: 1 Screen Result (Pos requires Nsg. Audit-10AR): Negative In the last yr the pt used illegal drug/Rx for NonMed reason: No Score: Yes response is considered Positive: 0 Screen Result (Positive result requires Nsg. DAST-10): Negative Review of Systems - Review of Systems Able to Perform ROS?: Yes Is the patient limited [place] proficient: No Constitutional: No: Chills, Fever, Malaise HEENTM: No: Symptoms Reported, See HPI, Eye Pain, Blurred Vision, Tearing, Recent change in vision, Double Vision, Cataracts, Ear Pain, Ocular Prothesis, Ear Discharge, Nose Pain, Nose Congestion, Tinnitus, Nose Bleeding, Hearing L oss, Throat Pain, Throat Swelling, Mouth Pain, Dental Problems, Difficulty Swallowing, Mouth Swelling, Other Respiratory: No: Symptoms reported, See HPI, Cough, Orthopnea, Shortness of Breath, SOB with Exertion, SOB at Rest, Stridor, Wheezing, Productive cough, Hemoptysis, Other Cardiac (ROS): No: Symptoms Reported, See HPI, Chest Pain, Edema, Irregular Heart Rate, Lightheadedness, Palpitations, Syncope, Chest Tightness, Other ABD/GI: Yes: Symptoms Reported, See HPI, Constipated, Abdominal cramping (lower abdomen). No: Abd. Pain w/ defecation, Blood Streaked Bowels, Diarrhea, Difficulty Swallowing, Nausea, Poor Appetite, Poor Fluid Intake, Rectal Bleeding, Vomiting, Indigestion : Yes: Symptoms Reported, See HPI, Pain (left pelvic pain). No: Burning, Dysuria, Frequency, Flank Pain, Hematuria, Urgency Musculoskeletal: No: Back Pain Neurological: No: Headache, Dizziness All Other Systems: Reviewed and Negative *Physical Exam - Vital Signs Last Vital Signs Temp Pulse Resp BP Pulse Ox 98.1 F 83 20 105/62 96 11/09/19 17:06 11/09/19 17:06 11/09/19 17:06 11/09/19 17:06 11/09/19 17:06 - Physical Exam General Appearance: Yes: Nourished, Appropriately Dressed. No: Apparent Distress HEENT: positive: Normal ENT Inspection Respiratory/Chest: positive: Lungs Clear, Normal Breath Sounds. negative: Respiratory Distress, Accessory Muscle Use Cardiovascular: positive: Regular Rhythm, Regular Rate Female Pelvic Exam: positive: normal external exam, cervical os closed, normal adnexa, CMT (right mild CMT), discharge (small amount of yellow non-malodorous discharge in vaginal vault). negative: lesions, adnexal tenderness, vaginal bleeding Gastrointestinal/Abdominal: positive: Normal Bowel Sounds, Tender (mild suprapubic discomfort). negative: Distended, Guarding, Rebound Musculoskeletal: positive: Normal Inspection Extremity: positive: Normal Inspection, Normal Range of Motion Integumentary: positive: Normal Color Neurologic: positive: Fully Oriented, Alert, Normal Mood/Affect, Normal Response, Motor Strength 5/5 ED Treatment Course - RADIOLOGY Radiology Studies Ordered: Category Date Time Status KUB (KID UR & BLAD) [RAD] Stat Radiology 11/09/19 17:32 Ordered TRANSVAGINAL ULTRASOUND US [US] Stat Ultrasound 11/09/19 17:49 Ordered - Medications Given in the ED: ED Medications Discontinued Medications Generic Name Dose Route Start Last Admin Trade Name Freq PRN Reason Stop Dose Admin Phenazopyridine HCl 200 mg 11/09/19 17:33 11/09/19 17:35 Pyridium - PO 11/09/19 17:34 200 mg ONCE ONE Administration Medical Decision Making - Medical Decision Making 11/09/19 18:15 Morbidly obese patient with no significant past medical history present with complaint of 2-day history of suprapubic and left pelvic cramping pain which started as mild yesterday and has been worsening since having sex last night. Patient reported pain as muscles in the lower abdomen stretching. Patient wants to make sure her IUD is in place. Patient does not recall last menstrual period since she has IUD and has not been having it for many months. Patient does not know what type of IUD she has. Patient also has been reporting infrequent bowel movement and feels she might be a little constipated. Denies urinary frequency, dysuria, burning with urination, cough, shortness of breath, chest pain, diarrhea. Denies vaginal bleeding or discharge. Patient sexually active with one partner and does not always use condom. Exam significant for small amount of yellow non-malodorous discharge in vaginal vault. Right CMT. No blood in vaginal vault. Cervical os closed. IUD string visible on vaginal exam and short. No visible lesions. Patient is afebrile. Mild tenderness to suprapubic of abdomen. No tenderness to rest of abdomen. No guarding or rebound. Patient symptoms likely abdominal cramping from IUD exacerbated by sex versus cystitis versus STIs versus constipation. Genital culture of vaginal discharge sent. GC and chlamydia test sent. UA, urine hCG and urine culture sent. Transvaginal ultrasound ordered to rule out torsion and evaluate IUD location. Abdominal x-ray ordered to evaluate for possible constipation. Pyridium 200 mg p.o. ordered for abdominal cramping pain. Given patient with CMT, will treat empirically on ceftriaxone and doxycycline for possible early PID 11/09/19 19:02 KUB abdominal x-ray shows IUD in normal place and moderate stool which is likely the cause of patient pain. Transvaginal ultrasound shows IUD in place with no acute abnormality. Patient complaining still having cramping abdominal pain. Morphine 4 mg IM ordered for pain. Patient be given Maalox 30 mL p.o., MiraLAX 17 mg p.o. and lactulose for constipation. Reassess after bowel movement 11/09/19 20:24 Patient reported mild improvement abdominal pain. Patient stable for discharge on MiraLAX daily for constipation and doxycycline for empirical treatment of possible early PID with advised to increase fluid intake and fiber intake with [employer] and PCP follow-up Discharge - Discharge Information Problems reviewed: Yes Clinical Impression/Diagnosis: Pelvic pain Constipation Qualifiers: Constipation type: unspecified constipation type Qualified Code(s): K59.00 - Constipation, unspecified Abdominal pain Qualifiers: Abdominal location: lower abdomen, unspecified Qualified Code(s): R10.30 - Lower abdominal pain, unspecified Condition: Stable Disposition: HOME - Admission No - Additional Discharge Information Prescriptions: Mag Hydrox/Aluminum Hyd/Simeth [Maalox Advanced Suspension] 30 ml PO Q8H PRN #200 ml PRN Reason: abdominal discomfort Polyethylene Glycol 3350 [Miralax (For Daily Use) -] 17 gm PO DAILY #1 bottle Doxycycline Hyclate [Vibramycin] 100 mg PO BID 7 Days #14 capsule - Follow up/Referral Referrals: Emanuel Johnson MD [Staff Physician] - - Patient Discharge Instructions Patient Printed Discharge Instructions: Increased Dietary Fiber May Improve Constipation Conditions With Pelvic Rogelio, DI for Constipation Additional Instructions: Your ultrasound shows the IUD in the right place. Abdominal x-ray shows moderate stool which is likely the cause of your abdominal pain. Urine shows no infection at this time but given vaginal discharge and lower abdominal pain, you are being treated empirically on antibiotics while we wait for culture to come back, which will take a few days. Take prescribed medication for constipation and antibiotics as prescribed. Increase fluid and fiber intake to help improve constipation. Follow-up with your [employer]ENDANT or the referred [employer] ATTENDANT - Post Discharge Activity
[2019-11-09 18:35] LABS: URINE APPEARANCE CLEAR; URINE BILIRUBIN NEGATIVE (NEGATIVE); URINE COLOR YELLOW; URINE GLUCOSE (UA) NEGATIVE (NEGATIVE); URINE KETONE NEGATIVE (NEGATIVE); URINE LEUK ESTERASE NEGATIVE (NEGATIVE); URINE NITRITE NEGATIVE (NEGATIVE); URINE PROTEIN NEGATIVE (NEGATIVE)
[2019-11-09 18:38] LABS: HCG,QUALITATIVE URINE Negative
[2019-11-09] MEDS ORDERED: DOXYCYCLINE HYCLATE 100 MG CAPSULE PO ONE ×2 (18:54→19:07)
[2019-11-09] MEDS ORDERED: POLYETHYLENE GLYCOL 3350 119 GM BTL PO ONE (18:57)
[2019-11-09] MEDS ORDERED: MAG HYDROX/AL HYDROX/SIMETH 30 ML UNIT-DOSE CUP PO ONE (18:57)
[2019-11-09] MEDS ORDERED: LACTULOSE 20 GM/30 ML UDC (FOR ORAL USE ONLY) PO ONE (18:58)
[2019-11-09] MEDS ORDERED: morphine CARPU-JECT 2 MG/1 ML DISP.SYRIN IM ONE (18:59)
[2019-11-09] MEDS ORDERED: MORPHINE SULFATE 2 MG/ML VIAL ONE (19:07)
[2019-11-09] MEDS ORDERED: LACTULOSE 20 GM/30 ML UDC (FOR ORAL USE ONLY) ONE (19:07)
[2019-11-09] MEDS ORDERED: MAG HYDROX/AL HYDROX/SIMETH 30 ML UNIT-DOSE CUP ONE (19:08)
[2019-11-09] MEDS ORDERED: cefTRIAXone SODIUM 1 GM VIAL ONE (19:08)
[2019-11-09 20:04] VITALS: BP 110/70; PULSE 85
== END 2019-11-09 20:05 | disposition home or self-care (01) ==
LOC: JER 17:02
PROC: 3E023NZ Introduction of Analgesics, Hypnotics, Sedatives into Muscle, Percutaneous Approach (ICD-10-PCS; principal; 2019-11-09)
PROC: 3E023GC Introduction of Other Therapeutic Substance into Muscle, Percutaneous Approach (ICD-10-PCS; 2019-11-09)
DX: R10.2 Pelvic and perineal pain (principal); K59.00 Constipation, unspecified; R10.30 Lower abdominal pain, unspecified
CPT/HCPCS: 36415; 74018-TC-FY; 76830-TC; 81003; 84703; 87070; 87077; 87086; 87205; 87491; 87591; 87661; 99285-25

== ENCOUNTER 2020-06-05 19:22 | Emergency (ER) | payer MEDICARE, OTHER ==
[2020-06-05 19:33] VITALS: BP 127/70; PULSE 69; TEMP 98; BMI 42.7
[2020-06-05] MEDS ORDERED: ACETAMINOPHEN 500 MG TABLET (FP) PO ONE (20:16)
[2020-06-05] MEDS ORDERED: ACETAMINOPHEN 500 MG TABLET (FP) ONE (20:33)
== END 2020-06-05 21:21 | disposition home or self-care (01) ==
LOC: JERFT 19:22 → JER 19:22 → JERFT 21:21
DX: R68.83 Chills (without fever) (principal); R05 Cough; Z11.52 Encounter for screening for COVID-19
CPT/HCPCS: 71046-TC-FY; 87804; 99284-25; C9803; U0003

== ENCOUNTER 2020-08-25 12:49 | Emergency (ER) | payer MEDICARE, OTHER ==
[2020-08-25 13:06] VITALS: BMI 37.8
[2020-08-25] MEDS ORDERED: ALBUTEROL SO4 HFA INHALER IH PRN (14:36)
[2020-08-25] MEDS ORDERED: predniSONE 20 MG TABLET (UD) PO ONE (14:38)
[2020-08-25] MEDS ORDERED: ACETAMINOPHEN 500 MG TABLET (FP) PO ONE (14:39)
[2020-08-25] MEDS ORDERED: predniSONE 20 MG TABLET (UD) ONE (14:42)
[2020-08-25] MEDS ORDERED: ALBUTEROL SO4 HFA INHALER IH ONE (14:43)
[2020-08-25] MEDS ORDERED: ACETAMINOPHEN 500 MG TABLET (FP) ONE (14:43)
[2020-08-25 16:00] VITALS: BP 118/64; PULSE 80; TEMP 98.8
== END 2020-08-25 16:00 | disposition home or self-care (01) ==
LOC: JER 12:49
DX: B34.9 Viral infection, unspecified (principal); R06.2 Wheezing; R07.89 Other chest pain
CPT/HCPCS: 71046-TC-FY; 93005; 93010; 99284-25; C9803; U0003; U0005

== ENCOUNTER 2021-02-13 11:28 | Emergency (ER) | payer MEDICARE, OTHER ==
[2021-02-13 11:37] VITALS: BP 122/52; PULSE 71; TEMP 98.1; BMI 42.0
[2021-02-13] MEDS ORDERED: ACETAMINOPHEN 500 MG TABLET (FP) PO ONE (12:26)
[2021-02-13] MEDS ORDERED: ACETAMINOPHEN INJECTION 100 ML IVPB ONE (12:38)
[2021-02-13] MEDS ORDERED: ACETAMINOPHEN 500 MG TABLET (FP) ONE (12:40)
[2021-02-13 12:49] LABS: BASO % 0.9 % (0-2.0); EOS % 1.3 % (0-4.5); HEMATOCRIT 36.8 % (32.4-45.2); HEMOGLOBIN 12.3 GM/dL (10.7-15.3); LYMPH % 25.9 % (8-40); MCH 28.6 pg (25.7-33.7); MCHC 33.4 g/dl (32.0-36.0); MEAN CELL VOLUME 85.7 fl (80-96); MEAN PLT VOLUME 8.1 fl (7.5-11.1); MONO % 7.6 % (3.8-10.2); NEUT % 64.3 % (42.8-82.8); PLATELET COUNT 239 10^3/uL (134-434); RBC 4.29 M/mm3 (3.60-5.2); RDW 13.9 % (11.6-15.6); WHITE BLOOD COUNT 10.3 K/mm3 (4.0-10.0)
[2021-02-13 12:58] LABS: PROTHROMBIN TIME (PATIENT) 11.2 SEC (9.7-13.0)
[2021-02-13 13:04] LABS: CHLORIDE 106 mmol/L (98-107); SODIUM 139 mmol/L (136-145)
[2021-02-13 13:06] LABS: CALCIUM 8.7 mg/dL (8.5-10.1)
[2021-02-13 13:07] LABS: ALBUMIN 3.3 g/dl (3.4-5.0); ANION GAP 5 MMOL/L (8-16); BLOOD UREA NITROGEN 15.9 mg/dL (7-18); CO2 28 mmol/L (21-32); GLUCOSE,RANDOM 89 mg/dL (74-106)
[2021-02-13 13:10] LABS: CREATININE 0.7 mg/dL (0.55-1.3); SGOT/AST 12 U/L (15-37); SGPT/ALT 16 U/L (13-61)
[2021-02-13 13:11] LABS: BILIRUBIN,TOTAL 0.4 mg/dL (0.2-1); TOT PROT 6.5 g/dl (6.4-8.2)
[2021-02-13 13:13] LABS: ALK PHOS 68 U/L (45-117)
[2021-02-13] MEDS ORDERED: traMADol HCL 50 MG TABLET PO ONE (15:00)
[2021-02-13] MEDS ORDERED: MAG HYDROX/AL HYDROX/SIMETH 30 ML UNIT-DOSE CUP PO ONE (15:00)
[2021-02-13] MEDS ORDERED: traMADol HCL 50 MG TABLET ONE (15:04)
[2021-02-13] MEDS ORDERED: MAGNESIUM HYDROX 2400MG/30ML ORAL SUSPENSION 30 ML CUP ONE (15:04)
[2021-02-13] MEDS ORDERED: MAG HYDROX/AL HYDROX/SIMETH 30 ML UNIT-DOSE CUP ONE (15:06)
== END 2021-02-13 17:05 | disposition home or self-care (01) ==
LOC: JER 11:28
DX: R07.9 Chest pain, unspecified (principal)
CPT/HCPCS: 36415; 71046-TC-FY; 80053; 82550; 84484; 84703; 85025; 85379; 85610; 93005; 93010; 99284-25

== ENCOUNTER 2021-03-16 11:30 | Emergency (ER) | payer MEDICARE, OTHER ==
[2021-03-16 11:49] VITALS: BP 123/78; PULSE 59; TEMP 98.4; BMI 42.0
[2021-03-16] MEDS ORDERED: SODIUM CHLORIDE 0.9% 500 ML INFUS.BAG IV ONE (13:04)
[2021-03-16 14:31] LABS: CALCIUM 8.5 mg/dL (8.5-10.1)
[2021-03-16 14:32] LABS: ALBUMIN 3.3 g/dl (3.4-5.0); BLOOD UREA NITROGEN 9.1 mg/dL (7-18)
[2021-03-16 14:35] LABS: CREATININE 0.7 mg/dL (0.55-1.3)
[2021-03-16 14:36] LABS: BILIRUBIN,TOTAL 0.5 mg/dL (0.2-1); TOT PROT 6.7 g/dl (6.4-8.2)
[2021-03-16] MEDS ORDERED: ACETAMINOPHEN 500 MG TABLET (FP) PO ONE (14:48)
[2021-03-16] MEDS ORDERED: ACETAMINOPHEN 500 MG TABLET (FP) ONE (16:21)
[2021-03-16] MEDS ORDERED: DEXAMETHASONE SOD PHOSPHATE 10 MG/1 ML VIAL ONE (16:22)
== END 2021-03-16 17:20 | disposition home or self-care (01) ==
LOC: JER 11:30
DX: B34.9 Viral infection, unspecified (principal)
CPT/HCPCS: 36415; 71045-TC-FY; 80053; 87070; 87077; 87804; 99284-25; C9803; U0003; U0005

== ENCOUNTER 2021-03-22 18:15 | Emergency (ER) | payer MEDICARE, OTHER ==
[2021-03-22 19:37] VITALS: BP 118/78; PULSE 89; TEMP 99.9; BMI 36.0
[2021-03-22] MEDS ORDERED: ACETAMINOPHEN 325 MG TABLET (FP) PO ONE (22:33)
[2021-03-22] MEDS ORDERED: METHOCARBAMOL 500 MG TABLET PO ONE (22:33)
[2021-03-23] MEDS ORDERED: BENZOCAINE/MENTHOL 1 EACH LOZENGE MM PRN (01:12)
== END 2021-03-23 03:05 | disposition home or self-care (01) ==
LOC: JER 18:15
DX: R09.89 Other specified symptoms and signs involving the circulatory and respiratory systems (principal); M79.602 Pain in left arm
CPT/HCPCS: 71046-TC-FY; 87070; 87077; 87804; 93005; 93010; 99285-25; C9803; U0003; U0005

== ENCOUNTER 2021-06-22 09:09 | Emergency (ER) | payer MEDICARE, OTHER ==
[2021-06-22 09:22] VITALS: TEMP 97.7; BMI 46.3
[2021-06-22] MEDS ORDERED: SODIUM CHLORIDE 0.9% 500 ML INFUS.BAG IV ONE (09:53)
[2021-06-22] MEDS ORDERED: morphine CARPU-JECT 4 MG/1 ML DISP.SYRIN IVPUSH ONE (09:53)
[2021-06-22] MEDS ORDERED: morphine SULFATE 4 MG/ML VIAL ONE (10:01)
[2021-06-22] MEDS ORDERED: METOCLOPRAMIDE HCL INJECTION 10 MG/2 ML VIAL IVPB ONE (10:05)
[2021-06-22 11:40] LABS: ALBUMIN 3.8 g/dl (3.4-5.0); BLOOD UREA NITROGEN 13.1 mg/dL (7-18)
[2021-06-22 11:43] LABS: CREATININE 0.8 mg/dL (0.55-1.3)
[2021-06-22] MEDS ORDERED: METOCLOPRAMIDE HCL INJECTION 10 MG/2 ML VIAL ONE (11:44)
[2021-06-22 11:45] LABS: BILIRUBIN,TOTAL 0.5 mg/dL (0.2-1); TOT PROT 7.2 g/dl (6.4-8.2)
[2021-06-22 12:17] LABS: BASO % 0.8 % (0-2.0); EOS % 6.3 % (0-4.5); HEMATOCRIT 39.2 % (32.4-45.2); HEMOGLOBIN 12.9 GM/dL (10.7-15.3); LYMPH % 24.2 % (8-40); MCH 28.3 pg (25.7-33.7); MCHC 32.8 g/dl (32.0-36.0); MEAN CELL VOLUME 86.2 fl (80-96); MEAN PLT VOLUME 8.8 fl (7.5-11.1); MONO % 6.8 % (3.8-10.2); NEUT % 61.9 % (42.8-82.8); PLATELET COUNT 245 10^3/uL (134-434); RBC 4.55 M/mm3 (3.60-5.2); RDW 14.3 % (11.6-15.6)
[2021-06-22] MEDS ORDERED: ACETAMINOPHEN 1000 MG/100 ML BAG IVPB ONE (13:07)
[2021-06-22] MEDS ORDERED: ACETAMINOPHEN INJECTION 100 ML IVPB ONE (13:46)
[2021-06-22 14:41] VITALS: BP 109/71; PULSE 65
== END 2021-06-22 15:59 | disposition home or self-care (01) ==
LOC: JER 09:09
PROC: 3E0333Z Introduction of Anti-inflammatory into Peripheral Vein, Percutaneous Approach (ICD-10-PCS; principal; 2021-06-22)
PROC: 3E0333Z Introduction of Anti-inflammatory into Peripheral Vein, Percutaneous Approach (ICD-10-PCS; 2021-06-22)
PROC: 3E033NZ Introduction of Analgesics, Hypnotics, Sedatives into Peripheral Vein, Percutaneous Approach (ICD-10-PCS; 2021-06-22)
DX: S59.912A Unspecified injury of left forearm, initial encounter (principal); I95.1 Orthostatic hypotension; W01.0XXA Fall on same level from slipping, tripping and stumbling without subsequent striking against object, initial encounter
CPT/HCPCS: 36415; 71046-TC-FY; 73030-TC-LT-FY; 73070-TC-LT-FY; 73110-TC-LT-FY; 73130-TC-LT-FY; 80053; 84484; 84703; 85025; 93005; 93010; 99285-25

== ENCOUNTER 2021-08-08 20:48 | Emergency (ER) | payer MEDICARE, OTHER ==
[2021-08-08 20:57] VITALS: BMI 42.9
[2021-08-08] MEDS ORDERED: METOCLOPRAMIDE HCL INJECTION 10 MG/2 ML VIAL IVPUSH ONE (21:14)
[2021-08-08] MEDS ORDERED: ACETAMINOPHEN 1000 MG/100 ML BAG IVPB ONE (21:14)
[2021-08-08] MEDS ORDERED: SODIUM CHLORIDE 0.9% 500 ML INFUS.BAG IV ONE (21:14)
[2021-08-08] MEDS ORDERED: METOCLOPRAMIDE HCL INJECTION 10 MG/2 ML VIAL ONE (21:18)
[2021-08-08] MEDS ORDERED: ACETAMINOPHEN INJECTION 100 ML IVPB ONE (21:18)
[2021-08-08 22:16] LABS: BASO % 0.6 % (0-2.0); EOS % 0.7 % (0-4.5); HEMATOCRIT 40.3 % (32.4-45.2); HEMOGLOBIN 13.2 GM/dL (10.7-15.3); LYMPH % 19.9 % (8-40); MCH 27.7 pg (25.7-33.7); MCHC 32.6 g/dl (32.0-36.0); MEAN CELL VOLUME 84.9 fl (80-96); MEAN PLT VOLUME 7.9 fl (7.5-11.1); MONO % 6.2 % (3.8-10.2); NEUT % 72.6 % (42.8-82.8); PLATELET COUNT 275 10^3/uL (134-434); RBC 4.75 M/mm3 (3.60-5.2); RDW 13.8 % (11.6-15.6); WHITE BLOOD COUNT 10.2 K/mm3 (4.0-10.0)
[2021-08-08 22:29] LABS: CALCIUM 9.1 mg/dL (8.5-10.1)
[2021-08-09] MEDS ORDERED: METOCLOPRAMIDE HCL INJECTION 10 MG/2 ML VIAL IVPUSH ONE (00:19)
[2021-08-09] MEDS ORDERED: SUMATRIPTAN SUCCINATE 6 MG/0.5 ML VIAL SQ ONE (00:27)
[2021-08-09] MEDS ORDERED: METOCLOPRAMIDE HCL INJECTION 10 MG/2 ML VIAL ONE (00:28)
[2021-08-09] MEDS ORDERED: SUMATRIPTAN SUCCINATE 6 MG/0.5 ML VIAL ONE (00:49)
[2021-08-09 02:36] VITALS: BP 98/60; PULSE 79; TEMP 98.2
== END 2021-08-09 02:36 | disposition home or self-care (01) ==
LOC: JER 20:48
PROC: 3E033GC Introduction of Other Therapeutic Substance into Peripheral Vein, Percutaneous Approach (ICD-10-PCS; principal; 2021-08-08)
PROC: 3E023GC Introduction of Other Therapeutic Substance into Muscle, Percutaneous Approach (ICD-10-PCS; principal; 2021-08-08)
DX: R51.9 Headache, unspecified (principal)
CPT/HCPCS: 36415; 70450-TC; 80048; 84703; 85025; 96372; 96374; 96375; 96376; 99285-25

== ENCOUNTER 2021-12-14 13:59 | Emergency (ER) | payer MEDICARE, OTHER ==
[2021-12-14 14:56] VITALS: BP 121/66; PULSE 79; RESP 16; TEMP 98.4; BMI 42.9
[2021-12-14] MEDS ORDERED: KETOROLAC TROMETHAMINE 30 MG/1 ML VIAL IM ONE (15:24)
[2021-12-14] MEDS ORDERED: ONDANSETRON *ODT* 4 MG TABLET SL ONE (15:25)
[2021-12-14] MEDS ORDERED: KETOROLAC TROMETHAMINE 30 MG/1 ML VIAL ONE (16:55)
[2021-12-14] MEDS ORDERED: ONDANSETRON *ODT* 4 MG TABLET ONE ×2 (16:55)
== END 2021-12-14 17:46 | disposition home or self-care (01) ==
LOC: JER 13:59
PROC: 3E0233Z Introduction of Anti-inflammatory into Muscle, Percutaneous Approach (ICD-10-PCS; principal; 2021-12-14)
DX: J06.9 Acute upper respiratory infection, unspecified (principal); S93.401A Sprain of unspecified ligament of right ankle, initial encounter
CPT/HCPCS: 73610-TC-RT-FY; 73630-TC-RT-FY; 99284-25; Q0162

== ENCOUNTER 2022-07-18 14:43 | Emergency (ER) | payer MEDICARE, OTHER ==
[2022-07-18 15:19] VITALS: BP 109/68; PULSE 77; RESP 20; TEMP 98.1; BMI 45.4
[2022-07-18] MEDS ORDERED: FAMOTIDINE 20 MG TABLET PO ONE (16:35)
[2022-07-18] MEDS ORDERED: SODIUM CHLORIDE 0.9% 500 ML INFUS.BAG IV ONE (16:35)
[2022-07-18] MEDS ORDERED: ONDANSETRON 4 MG TABLET PO ONE ×2 (16:35→17:00)
[2022-07-18] MEDS ORDERED: ACETAMINOPHEN 1000 MG/100 ML BAG IVPB ONE (16:45)
[2022-07-18] MEDS ORDERED: ACETAMINOPHEN INJECTION 100 ML IVPB ONE (17:00)
[2022-07-18] MEDS ORDERED: FAMOTIDINE 20 MG TABLET ONE (17:00)
[2022-07-18] MEDS ORDERED: ONDANSETRON 4 MG/2 ML VIAL IVPUSH ONE (17:19)
[2022-07-18] MEDS ORDERED: ONDANSETRON 4 MG/2 ML VIAL ONE (17:22)
[2022-07-18 17:34] LABS: BASO % 0.9 % (0-2.0); EOS % 4.3 % (0-4.5); HEMOGLOBIN 13.4 GM/dL (10.7-15.3); LYMPH % 24.7 % (8-40); MCH 27.7 pg (25.7-33.7); MCHC 32.8 g/dl (32.0-36.0); MEAN CELL VOLUME 84.4 fl (80-96); MEAN PLT VOLUME 7.5 fl (7.5-11.1); NEUT % 62.1 % (42.8-82.8); PLATELET COUNT 272 10^3/uL (134-434); RBC 4.85 M/mm3 (3.60-5.2); RDW 14.3 % (11.6-15.6); WHITE BLOOD COUNT 7.3 K/mm3 (4.0-10.0)
[2022-07-18 18:42] LABS: ALBUMIN 3.5 g/dl (3.4-5.0); CALCIUM 8.3 mg/dL (8.5-10.1)
[2022-07-18 18:44] LABS: BLOOD UREA NITROGEN 12.8 mg/dL (7-18)
[2022-07-18 18:47] LABS: CREATININE 0.9 mg/dL (0.55-1.3)
[2022-07-18 18:48] LABS: BILIRUBIN,TOTAL 0.3 mg/dL (0.2-1); TOT PROT 6.7 g/dl (6.4-8.2)
[2022-07-18] MEDS ORDERED: CYCLOBENZAPRINE HCL 10 MG TABLET (FP) PO ONE (19:07)
[2022-07-18] MEDS ORDERED: CYCLOBENZAPRINE HCL 10 MG TABLET (FP) ONE (19:24)
== END 2022-07-18 20:43 | disposition home or self-care (01) ==
LOC: JERFT 14:43 → JER 14:43 → JERFT 20:43
PROC: 3E033NZ Introduction of Analgesics, Hypnotics, Sedatives into Peripheral Vein, Percutaneous Approach (ICD-10-PCS; principal; 2022-07-18)
PROC: 3E033GC Introduction of Other Therapeutic Substance into Peripheral Vein, Percutaneous Approach (ICD-10-PCS; 2022-07-18)
DX: R50.9 Fever, unspecified (principal); R09.81 Nasal congestion; R07.0 Pain in throat; K21.9 Gastro-esophageal reflux disease without esophagitis; J06.9 Acute upper respiratory infection, unspecified; B97.89 Other viral agents as the cause of diseases classified elsewhere; M79.10 Myalgia, unspecified site; R11.10 Vomiting, unspecified; R51.9 Headache, unspecified; H53.71 Glare sensitivity; Z20.822 Contact with and (suspected) exposure to COVID-19
CPT/HCPCS: 0241U-QW; 36415; 80053; 84703; 85025; 87070; 87651; 96374; 96375; 99284-25

== ENCOUNTER 2022-08-10 15:52 | Emergency (ER) | payer MEDICARE, OTHER ==
[2022-08-10 16:02] VITALS: BP 107/65; PULSE 87; RESP 16; TEMP 98; BMI 42.9
[2022-08-10] MEDS ORDERED: traMADol HCL 50 MG TABLET PO ONE (16:34)
[2022-08-10] MEDS ORDERED: traMADol HCL 50 MG TABLET ONE (16:35)
== END 2022-08-10 19:03 | disposition home or self-care (01) ==
LOC: JERFT 15:52
DX: M25.562 Pain in left knee (principal); S89.92XA Unspecified injury of left lower leg, initial encounter; S99.912A Unspecified injury of left ankle, initial encounter; W10.8XXA Fall (on) (from) other stairs and steps, initial encounter; Y93.01 Activity, walking, marching and hiking
CPT/HCPCS: 73502-TC-LT-FY; 73562-TC-LT-FY; 73610-TC-LT-FY; 73630-TC-LT; 99284-25

== ENCOUNTER 2022-11-14 20:40 | Emergency (ER) | payer MEDICARE, OTHER ==
[2022-11-14 21:06] VITALS: BP 113/60; PULSE 66; RESP 18; TEMP 98.5; BMI 42.9
[2022-11-14] MEDS ORDERED: ONDANSETRON *ODT* 4 MG TABLET SL ONE (22:13)
[2022-11-14] MEDS ORDERED: SODIUM CHLORIDE 0.9% 1000 ML INFUS.BAG IV ONE (22:13)
[2022-11-14] MEDS ORDERED: ALBUTEROL SO4 HFA INHALER IH ONE ×2 (22:14→22:46)
[2022-11-14] MEDS ORDERED: ACETAMINOPHEN 1000 MG/100 ML BAG IVPB ONE (22:14)
[2022-11-14] MEDS ORDERED: ONDANSETRON 4 MG/2 ML VIAL ONE (22:16)
[2022-11-14 22:24] LABS: EPI CELLS 6 /uL (0-25.1); HYALINE CASTS 0 /uL (0-3.1); URINE APPEARANCE CLEAR; URINE BACTERIA 100 /uL (0-1359); URINE BILIRUBIN NEGATIVE (NEGATIVE); URINE COLOR YELLOW; URINE GLUCOSE (UA) NEGATIVE (NEGATIVE); URINE KETONE TRACE (NEGATIVE); URINE LEUK ESTERASE NEGATIVE (NEGATIVE); URINE NITRITE NEGATIVE (NEGATIVE); URINE PROTEIN NEGATIVE (NEGATIVE); URINE RBC 36 /uL (0-23.9); URINE WBC 5 /uL (0-25.8)
[2022-11-14] MEDS ORDERED: ACETAMINOPHEN INJECTION 100 ML IVPB ONE (22:29)
[2022-11-14 22:34] LABS: BASO % 0.5 % (0-2.0); EOS % 2.8 % (0-4.5); HEMATOCRIT 37.6 % (32.4-45.2); HEMOGLOBIN 12.5 GM/dL (10.7-15.3); LYMPH % 17.7 % (8-40); MCH 27.7 pg (25.7-33.7); MCHC 33.3 g/dl (32.0-36.0); MEAN CELL VOLUME 83.1 fl (80-96); MEAN PLT VOLUME 7.9 fl (7.5-11.1); MONO % 7.1 % (3.8-10.2); NEUT % 71.9 % (42.8-82.8); PLATELET COUNT 237 10^3/uL (134-434); RBC 4.53 M/mm3 (3.60-5.2); RDW 14.6 % (11.6-15.6); WHITE BLOOD COUNT 9.4 K/mm3 (4.0-10.0)
[2022-11-14 22:58] LABS: POTASSIUM 4.2 mmol/L (3.5-5.1)
[2022-11-14 23:00] LABS: ALBUMIN 3.3 g/dl (3.4-5.0); BLOOD UREA NITROGEN 15.4 mg/dL (7-18); CALCIUM 8.3 mg/dL (8.5-10.1)
[2022-11-14 23:03] LABS: CREATININE 0.8 mg/dL (0.55-1.3)
[2022-11-14] MEDS ORDERED: ONDANSETRON 4 MG/2 ML VIAL IVPUSH ONE (23:03)
[2022-11-14] MEDS ORDERED: morphine CARPU-JECT 2 MG/1 ML DISP.SYRIN IVPUSH ONE (23:04)
[2022-11-14 23:05] LABS: TOT PROT 6.5 g/dl (6.4-8.2)
[2022-11-15 00:21] LABS: BILIRUBIN,TOTAL 0.3 mg/dL (0.2-1)
[2022-11-15] MEDS ORDERED: morphine CARPU-JECT 4 MG/1 ML DISP.SYRIN IVPUSH ONE (00:22)
[2022-11-15] MEDS ORDERED: morphine SULFATE 4 MG/ML VIAL ONE (00:23)
== END 2022-11-15 02:56 | disposition home or self-care (01) ==
LOC: JER 20:40
PROC: 3E033NZ Introduction of Analgesics, Hypnotics, Sedatives into Peripheral Vein, Percutaneous Approach (ICD-10-PCS; principal; 2022-11-14)
PROC: 3E033GC Introduction of Other Therapeutic Substance into Peripheral Vein, Percutaneous Approach (ICD-10-PCS; 2022-11-14)
PROC: 3E033GC Introduction of Other Therapeutic Substance into Peripheral Vein, Percutaneous Approach (ICD-10-PCS; 2022-11-14)
PROC: 3E0F7GC Introduction of Other Therapeutic Substance into Respiratory Tract, Via Natural or Artificial Opening (ICD-10-PCS; 2022-11-14)
PROC: 3E033GC Introduction of Other Therapeutic Substance into Peripheral Vein, Percutaneous Approach (ICD-10-PCS; 2022-11-15)
DX: R09.81 Nasal congestion (principal); R05.9 Cough, unspecified; R06.7 Sneezing; M79.10 Myalgia, unspecified site; J02.9 Acute pharyngitis, unspecified; R11.10 Vomiting, unspecified; R10.31 Right lower quadrant pain; R31.9 Hematuria, unspecified; B34.9 Viral infection, unspecified; Z20.822 Contact with and (suspected) exposure to COVID-19
CPT/HCPCS: 0241U-QW; 36415; 71046-TC-FY; 74176-TC; 80053; 81003; 84703; 85025; 87086; 94640; 96374; 96375; 96376; 99285-25

== ENCOUNTER 2022-11-24 16:10 | Emergency (ER) | payer MEDICARE, OTHER ==
[2022-11-24 16:20] VITALS: BP 102/78; PULSE 80; RESP 18; TEMP 98.5; BMI 42.9
[2022-11-24] MEDS ORDERED: SODIUM CHLORIDE FOR INHALATION 3 ML VIAL.NEB IH ONE (17:19)
[2022-11-24] MEDS ORDERED: ALBUTEROL SO4 2.5/IPRATROPIUM 0.5 INH SOL 3 ML VIAL.NEB. NEB ONE ×2 (17:19→17:36)
[2022-11-24] MEDS ORDERED: ONDANSETRON 4 MG/2 ML VIAL IVPUSH ONE (17:20)
[2022-11-24] MEDS ORDERED: ACETAMINOPHEN 1000 MG/100 ML BAG IVPB ONE (17:20)
[2022-11-24] MEDS ORDERED: SODIUM CHLORIDE 1,000 ML IV STA (17:20)
[2022-11-24] MEDS ORDERED: ACETAMINOPHEN INJECTION 100 ML IVPB ONE (17:36)
[2022-11-24] MEDS ORDERED: ONDANSETRON 4 MG/2 ML VIAL ONE (17:36)
[2022-11-24 18:15] LABS: BASO % 0.6 % (0-2.0); EOS % 1.8 % (0-4.5); HEMATOCRIT 38.3 % (32.4-45.2); HEMOGLOBIN 12.6 GM/dL (10.7-15.3); LYMPH % 27.4 % (8-40); MCH 27.3 pg (25.7-33.7); MCHC 32.9 g/dl (32.0-36.0); MEAN CELL VOLUME 82.8 fl (80-96); MEAN PLT VOLUME 7.6 fl (7.5-11.1); MONO % 6.5 % (3.8-10.2); NEUT % 63.7 % (42.8-82.8); PLATELET COUNT 314 10^3/uL (134-434); RBC 4.63 M/mm3 (3.60-5.2); RDW 14.4 % (11.6-15.6); WHITE BLOOD COUNT 8.2 K/mm3 (4.0-10.0)
[2022-11-24 18:19] LABS: EPI CELLS 3 /uL (0-25.1); HYALINE CASTS 0 /uL (0-3.1); PH,URINE 5.5 (5.0-8.0); URINE APPEARANCE CLEAR; URINE BACTERIA 20 /uL (0-1359); URINE BILIRUBIN NEGATIVE (NEGATIVE); URINE COLOR YELLOW; URINE GLUCOSE (UA) NEGATIVE (NEGATIVE); URINE KETONE NEGATIVE (NEGATIVE); URINE LEUK ESTERASE NEGATIVE (NEGATIVE); URINE NITRITE NEGATIVE (NEGATIVE); URINE PROTEIN NEGATIVE (NEGATIVE); URINE RBC 140 /uL (0-23.9); URINE UROBILINOGEN 0.2 mg/dL (0.2-1.0); URINE WBC 2 /uL (0-25.8)
[2022-11-24 18:20] LABS: HCG,QUALITATIVE URINE Negative
[2022-11-24 18:22] LABS: INR 1.02 (0.83-1.09); PROTHROMBIN TIME (PATIENT) 11.8 SEC (9.7-13.0)
[2022-11-24 18:25] LABS: ACTIVATED PTT 29.3 SECONDS (25.2-36.5); POTASSIUM 4.3 mmol/L (3.5-5.1)
[2022-11-24 18:27] LABS: BLOOD UREA NITROGEN 15.7 mg/dL (7-18); CALCIUM 8.9 mg/dL (8.5-10.1)
[2022-11-24 18:28] LABS: ALBUMIN 3.5 g/dl (3.4-5.0)
[2022-11-24 18:30] LABS: CREATININE 0.8 mg/dL (0.55-1.3)
[2022-11-24 18:32] LABS: BILIRUBIN,TOTAL 0.6 mg/dL (0.2-1); TOT PROT 6.9 g/dl (6.4-8.2)
[2022-11-24] MEDS ORDERED: morphine CARPU-JECT 4 MG/1 ML DISP.SYRIN IVPUSH ONE (20:29)
[2022-11-24] MEDS ORDERED: morphine SULFATE 4 MG/ML VIAL ONE (20:33)
[2022-11-24] MEDS ORDERED: CEFTRIAXONE 1,000 MG in DEXTROSE 5%-WATER - 50 ML IVPB ONE (22:02)
[2022-11-24] MEDS ORDERED: CEFTRIAXONE 1 GM/50 ML BAG ONE (22:03)
[2022-11-24] MEDS ORDERED: DEXAMETHASONE SOD PHOSPHATE 10 MG/1 ML VIAL IVPUSH ONE (22:08)
[2022-11-24] MEDS ORDERED: DEXAMETHASONE SOD PHOSPHATE 10 MG/1 ML VIAL ONE (22:09)
[2022-11-25] MEDS ORDERED: DEXAMETHASONE SOD PHOSPHATE 10 MG/1 ML VIAL IVPUSH SCH (10:00)
== END 2022-11-24 22:21 | disposition home or self-care (01) ==
LOC: JER 16:10
PROC: 3E03329 Introduction of Other Anti-infective into Peripheral Vein, Percutaneous Approach (ICD-10-PCS; principal; 2022-11-24)
PROC: 3E033NZ Introduction of Analgesics, Hypnotics, Sedatives into Peripheral Vein, Percutaneous Approach (ICD-10-PCS; 2022-11-24)
PROC: 3E033GC Introduction of Other Therapeutic Substance into Peripheral Vein, Percutaneous Approach (ICD-10-PCS; 2022-11-24)
PROC: 3E033GC Introduction of Other Therapeutic Substance into Peripheral Vein, Percutaneous Approach (ICD-10-PCS; 2022-11-24)
PROC: 3E033GC Introduction of Other Therapeutic Substance into Peripheral Vein, Percutaneous Approach (ICD-10-PCS; 2022-11-24)
PROC: 3E0337Z Introduction of Electrolytic and Water Balance Substance into Peripheral Vein, Percutaneous Approach (ICD-10-PCS; 2022-11-24)
PROC: 3E0F7GC Introduction of Other Therapeutic Substance into Respiratory Tract, Via Natural or Artificial Opening (ICD-10-PCS; 2022-11-24)
DX: N93.9 Abnormal uterine and vaginal bleeding, unspecified (principal); R05.9 Cough, unspecified; R09.89 Other specified symptoms and signs involving the circulatory and respiratory systems; R50.9 Fever, unspecified; R10.30 Lower abdominal pain, unspecified; J06.9 Acute upper respiratory infection, unspecified; B97.89 Other viral agents as the cause of diseases classified elsewhere
CPT/HCPCS: 36415; 71046-TC-FY; 74176-TC; 76830-TC; 80053; 81003; 83690; 84703; 85025; 85610; 85730; 86850; 86900; 86901; 87086; 94640; 96361; 96365; 96375; 99285-25; J1100

== ENCOUNTER 2022-12-19 16:27 | Emergency (ER) | payer MEDICARE, OTHER ==
[2022-12-19 16:36] VITALS: BP 110/65; PULSE 73; RESP 17; TEMP 98.2; BMI 42.9
[2022-12-19] MEDS ORDERED: ACETAMINOPHEN 325 MG TABLET (FP) PO ONE (17:48)
[2022-12-19] MEDS ORDERED: LIDOCAINE 5% TOPICAL PATCH TP ONE (17:50)
[2022-12-19] MEDS ORDERED: ACETAMINOPHEN 325 MG TABLET (FP) ONE (17:55)
[2022-12-19] MEDS ORDERED: LIDOCAINE 5% TOPICAL PATCH ONE (17:55)
[2022-12-19] MEDS ORDERED: LIDOCAINE PATCH REMOVAL MC SCH (22:00)
== END 2022-12-19 18:51 | disposition home or self-care (01) ==
LOC: JERFT 16:27
DX: M54.2 Cervicalgia (principal); M25.512 Pain in left shoulder; R20.2 Paresthesia of skin
CPT/HCPCS: 73030-TC-LT-FY; 99283-25

== ENCOUNTER 2023-06-03 00:05 | Emergency (ER) | payer MEDICARE, OTHER ==
[2023-06-03 00:19] VITALS: BP 101/71; PULSE 72; RESP 18; TEMP 97.3; BMI 41.1
[2023-06-03] MEDS: morphine CARPU-JECT 2 MG/1 ML DISP.SYRIN IM ONE ×3 (02:18→04:36)
[2023-06-03] MEDS ORDERED: diazePAM 5 MG TABLET ONE (03:55)
[2023-06-03] MEDS ORDERED: LIDOCAINE 4% PATCH TP ONE (03:55)
[2023-06-03] MEDS: LIDOCAINE 5% TOPICAL PATCH TP ONE (04:02)
[2023-06-03] MEDS: diazePAM 5 MG TABLET PO ONE (04:02)
[2023-06-03] MEDS ORDERED: LIDOCAINE PATCH REMOVAL MC ONE (16:00)
== END 2023-06-03 05:28 | disposition home or self-care (01) ==
LOC: JER 00:05
PROC: 3E033GC Introduction of Other Therapeutic Substance into Peripheral Vein, Percutaneous Approach (ICD-10-PCS; principal; 2023-06-03)
PROC: 3E033GC Introduction of Other Therapeutic Substance into Peripheral Vein, Percutaneous Approach (ICD-10-PCS; 2023-06-03)
DX: M25.512 Pain in left shoulder (principal); M25.532 Pain in left wrist; M75.02 Adhesive capsulitis of left shoulder; M79.642 Pain in left hand; M79.89 Other specified soft tissue disorders; W22.8XXA Striking against or struck by other objects, initial encounter
CPT/HCPCS: 73030-TC-LT-FY; 73110-TC-LT-FY; 73130-TC-LT-FY; 93971; 96372; 99284-25

== ENCOUNTER 2023-11-11 20:13 | Emergency (ER) | payer OTHER ==
[2023-11-11 20:20] VITALS: BP 108/70; PULSE 80; RESP 20; TEMP 97.8; BMI 41.1
[2023-11-11] MEDS ORDERED: ACETAMINOPHEN INJECTION 100 ML ONE (21:20)
[2023-11-11] MEDS: ACETAMINOPHEN 1000 MG/100 ML BAG IVPB ONE (21:40)
[2023-11-11] MEDS: SODIUM CHLORIDE 0.9% 500 ML INFUS.BAG IV ONE (21:41)
[2023-11-11 21:42] LABS: BASO % 0.7 % (0-2.0); EOS % 2.7 % (0-4.5); HEMATOCRIT 37.3 % (32.4-45.2); HEMOGLOBIN 12.2 GM/dL (10.7-15.3); LYMPH % 33.2 % (8-40); MCHC 32.7 g/dl (32.0-36.0); MEAN CELL VOLUME 85.5 fl (80-96); MEAN PLT VOLUME 7.4 fl (7.5-11.1); MONO % 7.6 % (3.8-10.2); NEUT % 55.8 % (42.8-82.8); PLATELET COUNT 244 10^3/uL (134-434); RBC 4.36 M/mm3 (3.60-5.2); RDW 14.7 % (11.6-15.6)
[2023-11-11] MEDS ORDERED: ONDANSETRON 4 MG/2 ML VIAL ONE (21:46)
[2023-11-11] MEDS: ONDANSETRON 4 MG/2 ML VIAL IVPB ONE (21:52)
[2023-11-11 22:21] LABS: POTASSIUM 4.3 mmol/L (3.5-5.1)
[2023-11-11 22:23] LABS: CALCIUM 8.1 mg/dL (8.5-10.1)
[2023-11-11 22:24] LABS: ALBUMIN 3.2 g/dl (3.4-5.0); BLOOD UREA NITROGEN 15.6 mg/dL (7-18)
[2023-11-11 22:27] LABS: CREATININE 0.7 mg/dL (0.55-1.3)
[2023-11-11 22:28] LABS: BILIRUBIN,TOTAL 0.3 mg/dL (0.2-1); TOT PROT 6.2 g/dl (6.4-8.2)
[2023-11-11] MEDS ORDERED: FAMOTIDINE 20 MG/50 ML IVPB 20 MG/50 ML MG IVPB ONE (22:30)
[2023-11-11] MEDS: FAMOTIDINE 20 MG/50 ML IVPB 20 MG/50 ML MG IVPB ONE (22:35)
[2023-11-12 01:00] LABS: HIV INTERPRETATION NEGATIVE (NEGATIVE)
[2023-11-12] MEDS ORDERED: ALBUTEROL SO4 2.5/IPRATROPIUM 0.5 INH SOL 3 ML VIAL.NEB. NEB ONE (01:11)
[2023-11-12] MEDS: ALBUTEROL SO4 2.5/IPRATROPIUM 0.5 INH SOL 3 ML VIAL.NEB. NEB ONE (01:20)
[2023-11-12] MEDS ORDERED: AZITHROMYCIN 500 MG TABLET ONE (01:53)
[2023-11-12] MEDS: AZITHROMYCIN 250 MG TABLET PO ONE (01:57)
== END 2023-11-12 02:22 | disposition home or self-care (01) ==
LOC: JER 20:13
PROC: 3E033GC Introduction of Other Therapeutic Substance into Peripheral Vein, Percutaneous Approach (ICD-10-PCS; principal; 2023-11-11)
PROC: 3E033GC Introduction of Other Therapeutic Substance into Peripheral Vein, Percutaneous Approach (ICD-10-PCS; 2023-11-11)
PROC: 3E033NZ Introduction of Analgesics, Hypnotics, Sedatives into Peripheral Vein, Percutaneous Approach (ICD-10-PCS; 2023-11-11)
PROC: 3E0F7GC Introduction of Other Therapeutic Substance into Respiratory Tract, Via Natural or Artificial Opening (ICD-10-PCS; 2023-11-11)
DX: R11.2 Nausea with vomiting, unspecified (principal); R05.9 Cough, unspecified; R19.7 Diarrhea, unspecified; R07.9 Chest pain, unspecified; Z20.822 Contact with and (suspected) exposure to COVID-19
CPT/HCPCS: 0241U-QW; 36415; 71046-TC-FY; 80053; 84484; 84703; 85025; 86803; 87389; 93005; 93010; 99285-25; J0131

== ENCOUNTER 2023-12-03 22:48 | Emergency (ER) | payer OTHER ==
[2023-12-03 22:55] VITALS: BP 103/56; PULSE 88; RESP 18; TEMP 97.6; BMI 41.1
[2023-12-04] MEDS ORDERED: ACETAMINOPHEN 325 MG TABLET (FP) ONE (00:11)
[2023-12-04] MEDS: ACETAMINOPHEN 500 MG TABLET (FP) PO ONE (00:12)
== END 2023-12-04 02:25 | disposition home or self-care (01) ==
LOC: JER 22:48
DX: M25.512 Pain in left shoulder (principal); M25.561 Pain in right knee; M25.432 Effusion, left wrist
CPT/HCPCS: 73030-TC-LT-FY; 73090-TC-LT-FY; 73110-TC-LT-FY; 73562-TC-LT-FY; 99284-25